=== PATIENT | male | born 1960 | race Caucasian/White ===

== ENCOUNTER 2017-11-18 06:09 | Emergency (ER) | payer MEDICAID, MEDICARE ==
[2017-11-18 07:00] LABS: BASOPHILS % (AUTO) 0.4 %; EOSINOPHILS # (AUTO) 0.1 10^3/uL (0.0-0.7); EOSINOPHILS % (AUTO) 1.6 %; HGB - HEMOGLOBIN 13.3 g/dL (14.0-18.0); LYMPHOCYTES # (AUTO) 1.6 10^3/uL (1.5-3.5); LYMPHOCYTES % (AUTO) 17.8 %; MEAN CORPUSCULAR HEMOGLOBIN 30.4 pg (27.0-31.0); MEAN CORPUSCULAR HGB CONC 34.4 g/dL (32.0-36.0); MEAN CORPUSCULAR VOLUME 88.4 fL (80.0-94.0); MEAN PLATELET VOLUME 7.7 fL (7.4-11.4); MONOCYTES # (AUTO) 1.3 10^3/uL (0.0-1.0); MONOCYTES % (AUTO) 14.9 %; NEUTROPHILS # (AUTO) 5.7 10^3/uL (1.5-6.6); NEUTROPHILS % (AUTO) 65.3 %; PLT - PLATELET COUNT 236 10^3/uL (130-450); RED BLOOD COUNT 4.38 10^6/uL (4.70-6.10); RED CELL DISTRIBUTION WIDTH 13.8 % (12.0-15.0); WHITE BLOOD COUNT 8.7 x10^3/uL (4.8-10.8)
[2017-11-18 07:14] LABS: MUDS CUTOFF CONCENTRATIONS CUTOFF CONC BELOW:
[2017-11-18 07:14] LABS: ALBUMIN 4.2 g/dL (3.2-5.5); ALBUMIN/GLOBULIN RATIO 1.4 (1.0-2.2); ALKALINE PHOSPHATASE 66 IU/L (42-121); ALT ALANINE AMINOTRANSFERASE 32 IU/L (10-60); AST ASPARTATE AMINOTRANSFERASE 63 IU/L (10-42); BILIRUBIN,TOTAL 1.5 mg/dL (0.2-1.0); BUN - BLOOD UREA NITROGEN 5 mg/dL (6-20); CALCIUM 8.7 mg/dL (8.5-10.3); CARBON DIOXIDE - CO2 26 mmol/L (21-32); CHLORIDE 97 mmol/L (101-111); CREATININE 0.7 mg/dL (0.6-1.2); GFR - MDRD 117 (>89); GLUCOSE 110 mg/dL (70-100); LIPASE 33 U/L (22-51); SODIUM 134 mmol/L (135-145); TOTAL PROTEIN 7.1 g/dL (6.7-8.2)
[2017-11-18 07:18] LABS: BILIRUBIN,URINE NEGATIVE (NEGATIVE); GLUCOSE, URINE (UA) NEGATIVE (NEGATIVE); KETONES,URINE (UA) 15 mg/dL (NEGATIVE); LEUKOCYTE ESTERASE, URINE NEGATIVE (NEGATIVE); NITRITE,URINE NEGATIVE (NEGATIVE); OCCULT BLOOD,URINE TRACE-LYSE (NEGATIVE); PH,URINE 6.5 PH (5.0-7.5); PROTEIN,URINE NEGATIVE (NEGATIVE); UROBILINOGEN,URINE 1 (NORMAL) E.U./dL (NORMAL)
[2017-11-18 07:20] LABS: CLARITY,URINE CLEAR (CLEAR)
[2017-11-18 07:34] LABS: AMPHETAMINE SCREEN,URINE NEGATIVE (NEGATIVE); BENZODIAZEPINES SCREEN, URINE NEGATIVE (NEGATIVE); COCAINE SCREEN URINE NEGATIVE (NEGATIVE); METHADONE SCREEN, URINE NEGATIVE (NEGATIVE); METHAMPHETAMINES SCREEN, URINE NEGATIVE (NEGATIVE); OPIATE SCREEN, URINE NEGATIVE (NEGATIVE); OXYCODONE SCREEN, URINE NEGATIVE (NEGATIVE); PROPOXYPHENE SCREEN, URINE NEGATIVE (NEGATIVE); TRICYCLIC ANTIDEPRESSANT,URINE NEGATIVE (NEGATIVE)
[2017-11-18] MEDS ORDERED: IBUPROFEN 800 MG TABLET PO STA (08:12)
--- NOTE | 2017-11-18 08:12 | ED Physician Documentation ---
History of Present Illness - Stated complaint Stated Complaint: BILAT KNEE PX - Chief complaint Chief Complaint: Ext Problem - History obtained from History obtained from: Patient - Additonal information Additional information: The patient is a 57-year-old male who presents with a series of complaints, including pain and swelling of his left knee, low back pain, sore throat and nasal congestion, and concern about the possibility of throat cancer. He reports that his mother had nasal polyps and developed cancer, and he is concerned that his sore throat may indicate same for him. He reports that the sore knee has been bothering him for the last 3 days. He has been walking distances of 4-6 miles daily in the past 3 days after more than 8 months of no physical activity. He denies fever, shortness of breath, nausea or vomiting. He reports chronic smoker's cough. He admits to cigarette smoking and alcohol use, as well as marijuana. He has a history of bipolar disorder, but does not take any prescription medication to treat that. Review of Systems Constitutional: denies: Fever Eyes: denies: Irritation Ears: denies: Ear pain Nose: reports: Congestion Throat: reports: Sore throat Cardiac: denies: Chest pain / pressure Respiratory: reports: Cough. denies: Dyspnea GI: denies: Abdominal Pain, Nausea, Vomiting : denies: Dysuria Skin: denies: Rash Musculoskeletal: reports: Extremity pain (left knee.) Neurologic: denies: Focal weakness, Numbness, Headache PD PAST MEDICAL HISTORY - Past Medical History Past Medical History: Yes Cardiovascular: Hypertension Respiratory: Asthma Endocrine/Autoimmune: None HEENT: Chronic sinusitis Psych: Depression, Anxiety, Bipolar disorder Musculoskeletal: Chronic back pain, Other - Past Surgical History Past Surgical History: Yes General: Other Ortho: Hip replacement, Arthroscopic surgery HEENT: Tonsil/Adenoidectomy - Present Medications Home Medications: Ambulatory Orders Medication Instructions Recorded Confirmed Ibuprofen [Motrin] 800 mg PO Q8H PRN #20 tablet 08/29/15 - Allergies Allergies/Adverse Reactions: Allergies Allergy/AdvReac Type Severity Reaction Status Date / Time doxycycline Allergy Intermediate Rash Verified 11/18/17 06:19 - Social History Does the pt smoke?: Yes Smoking Status: Current every day smoker Does the pt drink ETOH?: Yes Does the pt have substance abuse?: Yes Substance Use and Type: Marijuana - Immunizations Immunizations are current?: No Immunizations: TDAP >10years/unknown PD ED PE NORMAL - Vitals Vital signs reviewed: Yes (normal) - General General: Alert and oriented X 3, Well developed/nourished - HEENT HEENT: Atraumatic, Pharynx benign, Other (Mucousy nasal congestion.) - Neck Neck: Supple, no meningeal sign, No adenopathy - Cardiac Cardiac: RRR - Respiratory Respiratory: No respiratory distress, Clear bilaterally - Abdomen Abdomen: Soft, Non tender - Back Back: No CVA TTP - Derm Derm: No rash - Extremities Extremities: No edema, No calf tenderness / cord, Other (There is mild swelling about the left knee, without warmth or erythema palpated. There is mild soft tissue tenderness to palpation, without tenderness along the medial or lateral joint lines. He can fully extend the knee and can flex it to 90, although fle xion causes mild discomfort. There is no ligamentous laxity detected. Distal neurovascular is intact.) - Neuro Neuro: Alert and oriented X 3, No motor deficit, No sensory deficit Results - Vitals Vitals: Vital Signs - 24 hr 11/18/17 10:00 Heart Rate 88 Respiratory 16 Rate Blood Pressure 114/74 O2 Saturation 98 Oxygen O2 Source Room air - Labs Labs: Laboratory Tests 11/18/17 11/18/17 11/18/17 06:55 06:55 06:55 WBC 8.7 RBC 4.38 L Hgb 13.3 L Hct 38.7 L MCV 88.4 MCH 30.4 MCHC 34.4 RDW 13.8 Plt Count 236 MPV 7.7 Neut # (Auto) 5.7 Lymph # (Auto) 1.6 Orange # (Auto) 1.3 H Eos # (Auto) 0.1 Baso # (Auto) 0.0 Absolute Nucleated RBC 0.00 Nucleated RBC % 0.0 Sodium 134 L Potassium 3.3 L Chloride 97 L Carbon Dioxide 26 Anion Gap 11.0 BUN 5 L Creatinine 0.7 Estimated GFR (MDRD) 117 Glucose 110 H Calcium 8.7 Total Bilirubin 1.5 H AST 63 H ALT 32 Alkaline Phosphatase 66 Total Protein 7.1 Albumin 4.2 Globulin 2.9 Albumin/Globulin Ratio 1.4 Lipase 33 TSH 1.28 Urine Color Urine Clarity Urine pH Ur Specific [place] Urine Protein Urine Glucose (UA) Urine Ketones Urine Occult Blood Urine Nitrite Urine Bilirubin Urine Urobilinogen Ur Leukocyte Esterase Ur Microscopic Review Urine Culture Comments Urine Opiates Screen Ur Oxycodone Screen Urine Methadone Screen Ur Propoxyphene Screen Ur Barbiturates Screen Ur Tricyclics Screen Ur Phencyclidine Scrn Ur Amphetamine Screen U Methamphetamines Scrn U Benzodiazepines Scrn Urine Cocaine Screen U Cannabinoids Screen Ethyl Alcohol < 5.0 Group A Strep Rapid 11/18/17 11/18/17 07:13 08:00 WBC RBC Hgb Hct MCV MCH MCHC RDW Plt Count MPV Neut # (Auto) Lymph # (Auto) Orange # (Auto) Eos # (Auto) Baso # (Auto) Absolute Nucleated RBC Nucleated RBC % Sodium Potassium Chloride Carbon Dioxide Anion Gap BUN Creatinine Estimated GFR (MDRD) Glucose Calcium Total Bilirubin AST ALT Alkaline Phosphatase Total Protein Albumin Globulin Albumin/Globulin Ratio Lipase TSH Urine Color YELLOW Urine Clarity CLEAR Urine pH 6.5 Ur Specific [place] <=1.005 Urine Protein NEGATIVE Urine Glucose (UA) NEGATIVE Urine Ketones 15 H Urine Occult Blood TRACE-LYSE Urine Nitrite NEGATIVE Urine Bilirubin NEGATIVE Urine Urobilinogen 1 (NORMAL) Ur Leukocyte Esterase NEGATIVE Ur Microscopic Review NOT INDICATED Urine Culture Comments NOT INDICATED Urine Opiates Screen NEGATIVE Ur Oxycodone Screen NEGATIVE Urine Methadone Screen NEGATIVE Ur Propoxyphene Screen NEGATIVE Ur Barbiturates Screen NEGATIVE Ur Tricyclics Screen NEGATIVE Ur Phencyclidine Scrn NEGATIVE Ur Amphetamine Screen NEGATIVE U Methamphetamines Scrn NEGATIVE U Benzodiazepines Scrn NEGATIVE Urine Cocaine Screen NEGATIVE U Cannabinoids Screen POSITIVE H Ethyl Alcohol Group A Strep Rapid Negative PD MEDICAL DECISION MAKING - ED course Complexity details: reviewed results, re-evaluated patient, considered differential, d/w patient ED course: The patient's presentation is most consistent with viral upper respiratory infection. His presentation does not suggest pneumonia, and rapid strep screen is negative for strep throat. In addition, his left knee pain is most likely associated with increased walking activity, which is a new activity for him. There is no clinical evidence of an acute bony injury or infectious process. He may have a joint effusion. Treatment in the emergency department included administration of ibuprofen 800 mg orally. An Hever bandage was wrapped about the left knee. I discussed with him the diagnosis and expected course of illness, symptomatic treatment and outpatient follow-up, as well as potentially worrisome signs or symptoms that should prompt reevaluation in the emergency department. - Sepsis Event Vital Signs: Vital Signs - 24 hr 11/18/17 10:00 Heart Rate 88 Respiratory 16 Rate Blood Pressure 114/74 O2 Saturation 98 Oxygen O2 Source Room air Departure - Departure Disposition: 01 Home, Self Care Clinical Impression: Upper respiratory infection, viral Pain in extremity Qualifiers: Extremity pain location: lower extremity Laterality: left Qualified Code(s): M79.605 - Pain in left leg Condition: Stable Instructions: ED Knee Pain UKO, ED URI Viral Follow-Up: Nancy Cuello PA-C [Physician No Access] - Comments: Try to stop smoking cigarettes. You can use Tylenol or ibuprofen for fever or discomfort. Follow up with your primary physician within 2 weeks. Call to schedule an appointment. Return to the emergency department if you develop increasing pain, increasing difficulty breathing, or otherwise worsening symptoms. Discharge Date/Time: 11/18/17 10:01
[2017-11-18 10:01] VITALS: BP 114/74
== END 2017-11-18 10:01 | disposition home or self-care (01) ==
LOC: ED 06:09
DX: J06.9 Acute upper respiratory infection, unspecified (principal); M79.605 Pain in left leg; I10 Essential (primary) hypertension; F17.200 Nicotine dependence, unspecified, uncomplicated
CPT/HCPCS: 36415; 80053; 81003; 83690; 84443; 85025; 87070; 87430; 99283; A9270; 80306; 80320; 81001; 87086

== ENCOUNTER 2017-11-20 04:32 | Outpatient (CLI) | payer MEDICARE | END 2017-11-20 04:33 | disposition critical access hospital (66) | LOC: EMS 04:32 | PROVIDERS: ATTEND Surgery | DX: M25.562 Pain in left knee (principal) | CPT/HCPCS: A0425; A0429 ==

== ENCOUNTER 2017-11-20 04:48 | Emergency (ER) | payer MEDICAID, MEDICARE ==
[2017-11-20] MEDS ORDERED: ACETAMINOPHEN 500 MG TABLET PO STA (04:54)
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
[2017-11-20 05:07] VITALS: BP 147/102
--- NOTE | 2017-11-20 05:46 | XRAY Report ---
Reason: left knee pain and swelling Procedure Date: 11/20/2017 Accession Number: [id number] / [id number] Procedure: XR - Knee 2 View LT CPT Code: FULL RESULT: EXAM: LEFT KNEE RADIOGRAPHY EXAM DATE: 11/20/2017 05:18 AM. CLINICAL HISTORY: Left knee pain and swelling. COMPARISON: XR KNEE 3 VIEW 11/14/2008. TECHNIQUE: 2 views. FINDINGS: Bones: No acute fracture seen. Joints: No dislocation. Moderate 3 compartment degenerative joint disease. Small joint effusion. Soft Tissues: Mild soft tissue swelling. IMPRESSION: 1. Degenerative joint disease and small joint effusion. RADIA
== END 2017-11-20 05:45 | disposition home or self-care (01) ==
LOC: EDUNIT# → ED 04:48
DX: M19.90 Unspecified osteoarthritis, unspecified site (principal); M25.462 Effusion, left knee; I10 Essential (primary) hypertension; F17.200 Nicotine dependence, unspecified, uncomplicated
CPT/HCPCS: 99282; 99283

== ENCOUNTER 2018-05-01 05:47 | Emergency (ER) | payer MEDICARE, MEDICAID ==
[2018-05-01] MEDS ORDERED: IPRATROPIUM/ALBUTEROL 3 ML NEB INH STA (06:23)
[2018-05-01] MEDS ORDERED: LIDOCAINE 1% 2 ML VIAL SUBQ ONE (06:23)
[2018-05-01] MEDS ORDERED: DEXAMETHASONE 10 MG/ML VIAL PO STA (06:23)
[2018-05-01] MEDS ORDERED: cefTRIAXone 1 GM VIAL IM STA (06:23)
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
[2018-05-01] MEDS ORDERED: CHERRY SYRUP 10 ML UDC PO ONE (06:31)
--- NOTE | 2018-05-01 07:35 | XRAY Report ---
Reason: cough congestion Procedure Date: 05/01/2018 Accession Number: [id number] / [id number] Procedure: XR - Chest 2 View X-Ray CPT Code: 68422 FULL RESULT: EXAM: CHEST RADIOGRAPHY EXAM DATE: 05/01/2018 07:22 AM. CLINICAL HISTORY: Cough congestion. COMPARISON: CHEST 2 VIEW PA/LAT 06/02/2015 7:26 AM CHEST 2 VIEW PA/LAT 08/22/2013 7:18 AM. TECHNIQUE: 2 views. FINDINGS: Lungs/Pleura: No focal consolidation evident. There is mild pleural parenchymal thickening at the bilateral lung apices. No pleural effusion. No pneumothorax. Lungs are hyperexpanded with mild flattening of the diaphragm. Mediastinum: Heart and mediastinal contours are unremarkable. Other: There are old healed right posterior rib fractures, as seen on the prior exam. No acute displaced fracture identified. There are mild degenerative disk changes of the thoracic spine. IMPRESSION: 1. No acute cardiopulmonary abnormality. 2. Lungs are hyperexpanded with mild flattening of the diaphragm, raising the possibility of COPD/emphysema. 3. Old healed right posterior rib fractures, as seen on prior exams. No acute displaced fracture visualized. RADIA
[2018-05-01 07:39] VITALS: BP 113/59
== END 2018-05-01 07:51 | disposition home or self-care (01) ==
LOC: ED 05:47
DX: J40 Bronchitis, not specified as acute or chronic (principal); H66.003 Acute suppurative otitis media without spontaneous rupture of ear drum, bilateral; I10 Essential (primary) hypertension; F17.200 Nicotine dependence, unspecified, uncomplicated
CPT/HCPCS: 71046; 94640; 94664; 96372; 99283; A9270

== ENCOUNTER 2018-05-15 21:20 | Outpatient (CLI) | payer MEDICARE, MEDICAID | END 2018-05-15 21:21 | disposition short-term general hospital (02) | LOC: EMS 21:20 | PROVIDERS: ATTEND Surgery | DX: M54.5 Low back pain (principal); R26.2 Difficulty in walking, not elsewhere classified | CPT/HCPCS: A0425; A0429 ==

== ENCOUNTER 2018-05-22 07:32 | Outpatient (CLI) | payer MEDICARE, MEDICAID | END 2018-05-22 07:33 | disposition critical access hospital (66) | LOC: EMS 07:32 | PROVIDERS: ATTEND Surgery | DX: M25.561 Pain in right knee (principal); Y29.XXXA Contact with blunt object, undetermined intent, initial encounter; Y92.512 Supermarket, store or market as the place of occurrence of the external cause | CPT/HCPCS: A0425; A0429 ==

== ENCOUNTER 2018-05-22 07:48 | Emergency (ER) | payer MEDICARE, MEDICAID ==
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
[2018-05-22] MEDS ORDERED: IBUPROFEN 800 MG TABLET PO STA (08:09)
[2018-05-22 08:10] VITALS: BP 106/94
== END 2018-05-22 08:29 | disposition home or self-care (01) ==
LOC: EDUNIT# → ED 07:48
DX: S80.211A Abrasion, right knee, initial encounter (principal); W22.8XXA Striking against or struck by other objects, initial encounter; Y93.01 Activity, walking, marching and hiking; I10 Essential (primary) hypertension; F17.200 Nicotine dependence, unspecified, uncomplicated
CPT/HCPCS: 99282; 99283; A9270

== ENCOUNTER 2018-06-12 05:12 | Emergency (ER) | payer MEDICARE, MEDICAID ==
[2018-06-12 05:27] VITALS: BP 100/68
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
[2018-06-12] MEDS ORDERED: KETOROLAC 60 MG/2 ML VIAL IM STA (05:57)
[2018-06-12] MEDS ORDERED: DEXAMETHASONE 10 MG/ML VIAL PO STA (05:57)
[2018-06-12] MEDS ORDERED: CHERRY SYRUP 10 ML UDC PO ONE (05:57)
== END 2018-06-12 06:34 | disposition home or self-care (01) ==
LOC: ED 05:12
DX: S30.0XXA Contusion of lower back and pelvis, initial encounter (principal); S00.03XA Contusion of scalp, initial encounter; Y08.89XA Assault by other specified means, initial encounter; Y92.511 Restaurant or cafe as the place of occurrence of the external cause; I10 Essential (primary) hypertension; F17.200 Nicotine dependence, unspecified, uncomplicated; G89.29 Other chronic pain; Z96.649 Presence of unspecified artificial hip joint; Z59.0 Homelessness
CPT/HCPCS: 96372; 99282; 99283; A9270

== ENCOUNTER 2018-08-07 05:25 | Emergency (ER) | payer MEDICARE, MEDICAID ==
[2018-08-07 05:40] VITALS: BP 152/87
[2018-08-07] MEDS ORDERED: DEXAMETHASONE 10 MG/ML VIAL PO STA (05:48)
[2018-08-07] MEDS ORDERED: CHERRY SYRUP 10 ML UDC PO ONE (05:48)
--- NOTE | 2018-08-07 05:53 | ED Physician Documentation ---
PD HPI UPPER EXT INJURY - Stated complaint Stated Complaint: HAND PAIN - Chief complaint Chief Complaint: Ext Problem - History obtained from History obtained from: Patient - History of Present Illness Location: Left, Wrist Type of injury: Other (sleep injury) Where injury occurred: Home Timing - onset: How many days ago (6) Timing - duration: Days (6) Timing - details: Abrupt onset, Still present Improved by: Rest, Other (physical therapy) Worsened by: Moving, Palpating Associated symptoms: Weakness, Numbness, Tingling, Swelling, Discolored Contributing factors: No: Anticoagulated Similar symptoms before: Diagnosis (self induced TIA) Recently seen: Not recently seen - Additonal information Additional information: 57-year-old male reports that he fell asleep 1 week ago with his left wrist flexed and tucked under his neck. He states that when he awoke in the morning he found that his hand was numb and cold and that he was unable to extend the wrist or extend the fingers. He has numbness in the hand as well. He has now been able to flex and extend the wrist and he is slowly improving his ability to use each of his fingers. There is redness and swelling to the hand and a portion of the forearm. He has come here this morning at the insistence of the people he is usually around and he is requesting a referral to physical therapy as he believes this has been helping regain movement. He states that previously he has had a self-induced TIA by falling asleep with his thumb in his carotid artery on the left side. He does have bilateral Dupuytren's contracture and he wants to get this operated on. Review of Systems Constitutional: denies: Fever, Chills, Myalgias Eyes: denies: Decreased vision Ears: denies: Ear pain Nose: denies: Rhinorrhea / runny nose, Congestion Throat: denies: Sore throat Cardiac: denies: Chest pain / pressure, Palpitations Respiratory: denies: Dyspnea, Cough GI: denies: Abdominal Pain, Nausea, Vomiting : denies: Dysuria, Frequency Skin: denies: Rash Musculoskeletal: reports: Extremity pain, Joint pain, Extremity swelling. denies: Neck pain, Back pain Neurologic: reports: Focal weakness, Numbness. denies: Generalized weakness PD PAST MEDICAL HISTORY - Past Medical History Cardiovascular: Hypertension Respiratory: Asthma Neuro: None Endocrine/Autoimmune: None GI: None : None HEENT: Chronic sinusitis Psych: Depression, Anxiety, Bipolar disorder Musculoskeletal: Chronic back pain, Other Derm: None Other Past Medical History: pneumothorax R lung, plantar fibroma bilateral feet - Past Surgical History Past Surgical History: Yes General: Other Ortho: Hip replacement, Arthroscopic surgery HEENT: Tonsil/Adenoidectomy - Present Medications Home Medications: Ambulatory Orders Medication Instructions Recorded Confirmed No Known Home Medications 08/07/18 08/07/18 - Allergies Allergies/Adverse Reactions: Allergies Allergy/AdvReac Type Severity Reaction Status Date / Time doxycycline Allergy Intermediate Rash Verified 08/07/18 05:31 - Social History Does the pt smoke?: Yes Smoking Status: Current every day smoker Does the pt drink ETOH?: Yes ETOH Use: Wine Does the pt have substance abuse?: No Substance Use and Type: Marijuana - Immunizations Immunizations are current?: No Immunizations: TDAP current <10years - POLST Patient has POLST: No PD ED PE NORMAL - Vitals Vital signs reviewed: Yes (tachy and hypertensive) - General General: Alert and oriented X 3, No acute distress, Well developed/nourished - HEENT HEENT: Atraumatic, PERRL, EOMI - Respiratory Respiratory: No respiratory distress - Derm Derm: Warm and dry, No rash, Other (redness to the left hand and a portion of the forearm ) - Extremities Extremities: Other (The left hand is held in flexion with the fingers flexed as well. He is able to dorsiflex the wrist and he can partially straighten the fingers. The 5th digit is the most affected. ) - Neuro Neuro: Alert and oriented X 3, saas architect 2-12 intact, Normal speech Eye Opening: Spontaneous Motor: Obeys Commands Verbal: Oriented GCS Score: 15 - Psych Psych: Normal mood, Normal affect Results - Vitals Vitals: Vital Signs - 24 hr 08/07/18 05:28 Temperature 36.9 C Heart Rate 124 H Respiratory 16 Rate Blood Pressure 152/87 H O2 Saturation 97 Oxygen O2 Source Room air Procedures - Splint (location) left wrist Splint applied by: Tech Type of splint: Prefab velcro wrist Other: Patient tolerated well, No complications, Good alignment PD MEDICAL DECISION MAKING - ED course Complexity details: considered differential, d/w patient ED course: 57 y/o male with a Tuesday palsy causing a wrist drop and functional loss of use of the left hand. Here in the ED he is administered decadron, placed into a splint and we will refer him to physical therapy. Departure - Departure Disposition: Home, Self Care Clinical Impression: Tuesday night nerve palsy Qualifiers: Laterality: left Qualified Code(s): G56.32 - Lesion of radial nerve, left upper limb Condition: Stable Instructions: ED Drop Wrist Follow-Up: Ailyn Peña ARNP [Primary Care Provider] - SHANNON GREEN [Physician No Access] - Comments: This problem with your wrist can take as long as 3 to 6 months to resolve.
== END 2018-08-07 06:28 | disposition home or self-care (01) ==
LOC: ED 05:25
DX: G56.32 Lesion of radial nerve, left upper limb (principal); M72.0 Palmar fascial fibromatosis [Dupuytren]; I10 Essential (primary) hypertension; F17.200 Nicotine dependence, unspecified, uncomplicated
CPT/HCPCS: 29125; 99283; A9270; 11760

== ENCOUNTER 2018-10-20 00:53 | Outpatient (CLI) | payer MEDICARE, MEDICAID | END 2018-10-20 00:54 | disposition EMS.NT | LOC: EMS 00:53 | PROVIDERS: ATTEND Surgery | DX: R68.89 Other general symptoms and signs (principal) ==

== ENCOUNTER 2018-10-25 06:19 | Outpatient (CLI) | payer MEDICARE, MEDICAID | END 2018-10-25 06:20 | disposition short-term general hospital (02) | LOC: EMS 06:19 | PROVIDERS: ATTEND Surgery | DX: M25.552 Pain in left hip (principal); W01.0XXA Fall on same level from slipping, tripping and stumbling without subsequent striking against object, initial encounter | CPT/HCPCS: A0425; A0429 ==

== ENCOUNTER 2018-12-26 00:07 | Outpatient (CLI) | payer MEDICARE, MEDICAID | END 2018-12-26 00:08 | disposition critical access hospital (66) | LOC: EMS 00:07 | PROVIDERS: ATTEND Surgery | DX: M25.552 Pain in left hip (principal) | CPT/HCPCS: A0425; A0429 ==

== ENCOUNTER 2018-12-26 00:22 | Inpatient (IN) | payer MEDICARE, MEDICAID ==
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
--- NOTE | 2018-12-26 04:55 | CT Report ---
Reason: fall, left hip pain Procedure Date: 12/26/2018 Accession Number: [id number] / [id number] Procedure: CT - LOWER EXTREMITY WO - LT CPT Code: FULL RESULT: EXAM: LEFT LOWER EXTREMITY CT WITHOUT CONTRAST EXAM DATE: 12/26/2018 03:55 AM. CLINICAL HISTORY: Fall, left hip pain. COMPARISON: HIP W/PELVIS 2-3V LT 12/26/2018 1:59 AM. TECHNIQUE: Thin-section axial images were acquired of the lower extremity from above the iliac crest to the mid femur without contrast. Post-processing: Coronal and sagittal reformats. Other: None. In accordance with CT protocol optimization, one or more of the following dose reduction techniques were utilized for this exam: automated exposure control, adjustment of mA and/or KV based on patient size, or use of iterative reconstructive technique. FINDINGS: Bones: Subcapital left hip fracture. Fracture lines also extend to the greater trochanter and intertrochanteric area. Lytic appearing area in the femoral neck measuring 1.6 cm, series 11 image 98. Healing fractures of the right pubis and inferior pubic ramus. Joints: No dislocation seen. Moderate degenerative joint disease in the left hip. Degenerative changes in the lower lumbar facet joints with spinal stenosis. Degenerative changes in the sacroiliac joints with partial ankylosis on the left. Degenerative changes in the symphysis pubis. Musculature: Suspected contusion at the left hip. Other: Urinary bladder wall thickening. Large amount of stool in the visualized portions of the colon. Appendix appears normal. Vascular calcifications. IMPRESSION: 1. Subcapital left hip fracture extending into the greater trochanter and intertrochanteric area. 2. Subchondral cyst versus lytic lesion in the left femoral neck measuring 1.6 cm. Cannot exclude pathologic fracture. 3. Healing fractures of the right pubis and inferior pubic ramus. 4. Moderate degenerative joint disease in the left hip. 5. Degenerative changes in the lower lumbar facet joints with spinal stenosis. 6. Urinary bladder wall thickening which could be due to hypertrophy and incomplete distention. Cystitis also possible. RADIA
[2018-12-26] MEDS ORDERED: SODIUM CHLORIDE 0.9% 1,000 ML IV STA ×2 (05:00→05:52)
[2018-12-26] MEDS ORDERED: MORPHINE 2 MG/ML CARPUJECT IVP PRN (05:22)
[2018-12-26] MEDS ORDERED: SODIUM CHLORIDE FLUSH 0.9% 10 ML SYRINGE IVP PRN ×2 (05:22→10:44)
[2018-12-26] MEDS ORDERED: ONDANSETRON ODT 4 MG TABLET TL PRN (05:22)
[2018-12-26] MEDS ORDERED: ONDANSETRON 4 MG/2 ML VIAL IVP PRN (05:22)
[2018-12-26 05:29] LABS: BASOPHILS % (AUTO) 0.3 %; EOSINOPHILS # (AUTO) 0.2 10^3/uL (0.0-0.7); EOSINOPHILS % (AUTO) 2.2 %; HGB - HEMOGLOBIN 12.2 g/dL (14.0-18.0); LYMPHOCYTES % (AUTO) 21.7 %; MEAN CORPUSCULAR HEMOGLOBIN 31.8 pg (27.0-31.0); MEAN CORPUSCULAR HGB CONC 33.1 g/dL (32.0-36.0); MEAN CORPUSCULAR VOLUME 96.1 fL (80.0-94.0); MEAN PLATELET VOLUME 8.9 fL (7.4-11.4); MONOCYTES # (AUTO) 1.1 10^3/uL (0.0-1.0); MONOCYTES % (AUTO) 11.3 %; NEUTROPHILS # (AUTO) 5.9 10^3/uL (1.5-6.6); NEUTROPHILS % (AUTO) 64.1 %; PLT - PLATELET COUNT 194 10^3/uL (130-450); RED BLOOD COUNT 3.84 10^6/uL (4.70-6.10); WHITE BLOOD COUNT 9.3 x10^3/uL (4.8-10.8)
--- NOTE | 2018-12-26 05:33 | XRAY Report ---
Reason: chest pain Procedure Date: 12/26/2018 Accession Number: [id number] / [id number] Procedure: XR - Chest 1 View X-Ray CPT Code: 84651 FULL RESULT: EXAM: CHEST RADIOGRAPHY EXAM DATE: 12/26/2018 05:13 AM. CLINICAL HISTORY: Chest pain. COMPARISON: CHEST 2 VIEW 05/01/2018 7:10 AM. TECHNIQUE: 1 view. FINDINGS: Lungs/Pleura: The lungs are hyperinflated. There are no infiltrates or signs of failure. Mediastinum: Within exam limitations, the cardiomediastinal contour is normal. Other: None. IMPRESSION: 1. No acute infiltrates. RADIA
[2018-12-26 05:36] LABS: INR 1.3 (0.8-1.2); PT - PROTHROMBIN TIME 14.2 secs (9.9-12.6)
[2018-12-26 05:42] LABS: ALBUMIN 3.2 g/dL (3.2-5.5); ALBUMIN/GLOBULIN RATIO 1.1 (1.0-2.2); BILIRUBIN,TOTAL 0.8 mg/dL (0.2-1.0); CALCIUM 8.3 mg/dL (8.5-10.3); CREATININE 0.4 mg/dL (0.6-1.2)
[2018-12-26 05:43] LABS: PARTIAL THROMBOPLASTIN TIME 29.6 secs (24.9-33.3)
[2018-12-26] MEDS ORDERED: SODIUM CHLORIDE 0.9% 1,000 ML IV SCH (06:00)
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
[2018-12-26] MEDS ORDERED: FLU VACC QS2019-20(6MOS UP)/PF 60 MCG/0.5 ML SYRINGE IM ONE (06:54)
[2018-12-26] MEDS ORDERED: HALOPERIDOL 5 MG/ML VIAL IVP PRN (07:20)
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
[2018-12-26] MEDS ORDERED: PNEUMOCOCCAL 13-VALENT CONJ 0.5 ML SYRINGE IM ONE (08:00)
[2018-12-26] MEDS: POTASSIUM CHLOR 10 MEQ/100 ML 10 MEQ/100 ML BAG IV SCH ×4 (08:00→13:34)
[2018-12-26] MEDS ORDERED: BUPIVACAINE 0.25% PF 30 ML VIAL ONE (08:01)
--- NOTE | 2018-12-26 08:48 | ANESTHESIA PROCEDURE NOTE ---
Diagnosis: Left hip fracture Procedure: Left fascia iliaca block Consent for Procedure(s) Verified and Reviewed: Yes Height and Weight: Height 5 ft 11 in Weight (kg) 64.5 kg Body Mass Index 19.8 Vital Signs: Temp Pulse Resp BP Pulse Ox 36.9 C 98 16 90/69 97 12/26/18 06:40 12/26/18 06:40 12/26/18 06:40 12/26/18 06:40 12/26/18 06:40 Allergies doxycycline Allergy (Intermediate, Verified 12/26/18 00:31) Rash unknown due to pt condition ASA classification: 2-Mild systemic disease Is this case an emergency?: No Anes. Monitoring and Equipment: Non-invasive BP, Pulse oximetery Anes. Procedure Start Time: 08:20 Anes. Procedure Stop Time: 08:30 Procedure Notes: The patient's left hip was prepped with chloroprep. Ultrasound was used to identify the fascia iliaca. A 22G stimiplex needle was inserted just under the fascial plane and a total of 60ml of 0.25% ropivicaine plus 4mg decadron was injected with adequate spread noted. Patient tolerated well. Full evaluation pending.
[2018-12-26] MEDS ORDERED: SODIUM CHLORIDE FLUSH 0.9% 10 ML SYRINGE IVP SCH (09:00)
[2018-12-26] MEDS ORDERED: ceFAZolin 2 GM in SODIUM CHLORIDE 0.9% 100ML 100 ML IV SCH (09:00)
[2018-12-26] MEDS ORDERED: LACTATED RINGERS 1,000 ML IV ONE ×2 (09:07→10:37)
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
[2018-12-26] MEDS ORDERED: FLUMAZENIL 0.1 MG/1 ML 5 ML MDV IVP ONE (09:50)
[2018-12-26] MEDS ORDERED: BUPIVACAINE 0.25% PF 30 ML VIAL SUBQ ONE ×2 (09:55)
[2018-12-26] MEDS ORDERED: SENNA 8.6 MG TABLET PO PRN (10:44)
[2018-12-26] MEDS ORDERED: DOCUSATE SODIUM 100 MG CAPSULE PO PRN (10:44)
[2018-12-26] MEDS ORDERED: PROCHLORPERAZINE 10 MG/2 ML VIAL IVP PRN (10:44)
--- NOTE | 2018-12-26 11:30 | OPERATIVE REPORT ---
DATE OF SERVICE: 12/26/2018 Physician: Syed Bentley MD ORTHOPEDIC OPERATIVE NOTE PREOPERATIVE DIAGNOSIS: Closed, minimally displaced, left subcapital and intertrochanteric hip fract ure. POSTOPERATIVE DIAGNOSIS: Closed, minimally displaced, left subcapital and intertrochanteric hip frac ture. PROCEDURE PERFORMED: Closed reduction and short Intertan nailing of left hip fracture; bone reaming to pathology of cystic lesion in the left femoral neck. SURGEON: Syed Bentley MD. ANESTHESIA: General. DESCRIPTION OF PROCEDURE: Patient was taken to the operating room on the morning of 12/26/2018, wher e he was placed under general anesthetic in supine position on the fracture table without any problem s. We then placed the unfractured left leg with the hip flexed and widely abducted and held in a wel l leg dominique. The fractured left extremity was then placed into longitudinal traction with the leg i nternally rotated about 20 degrees. Fluoroscopic views in AP and lateral projection showed the fract ure to be adequately reduced. We then prepped and draped the lateral aspect of the hip in the usual fashion for our procedure. Making an oblique skin incision just proximal of the tip of the greater trochanter, we dissected down to the fascia salvatore at the tip of the greater trochanter. This is where we placed the threaded guide wire from the set. Its location was confirmed with fluoroscopy. We then advanced with powering the threaded guide pin through the greater trochanter into the proximal femur to the level of the lesser trochanter. AP and lateral projections were then visualized, showing adequate placement of our guide pin. We then proceeded to ream the proximal femur with a 16 mm channel reamer on power. This was r eamed down to the level of the lesser trochanter. We then removed the guide pin and reamer. We then used our selected short Intertan nail, which was 10 mm x 18 cm, 125 degree angle. This was placed o n the insertion outrigger, and this was advanced into the prepared proximal femur. Fluoroscopic view in AP projection showed adequate advancement of our nail down to where the oblique proximal hole in our nail was in alignment with the femoral neck. We then proceeded to make a small skin incision in the proximal mid portion of the thigh, where we in serted our oblique guide in the distal end of our insertion apparatus, abutting this against the late ral femoral cortex. We then inserted our drill sleeves into our guide and proceeded to advance under power the threaded tip through the proximal femur and femoral neck and into the femoral head. AP an d lateral projection showed a satisfactory position of our guide pin in proper depth. Direct measuri ng guide was then used to determine that a 100 mm length x 11 mm subtrochanteric hip lag screw be uti lized. We then removed our drill sleeve out of our alignment guide. Our cannulated reamer was then used to drill the proximal femur, femoral neck and femoral head. C-arm fluoroscopy was used to guide us. We then removed the cannulated reamer and inserted the selected subtrochanteric hip lag screw i n our prepared channel. This was advanced to within 3-4 mm of subchondral bone, AP and lateral proje ction. Satisfied with the reduction of our fracture and placement of our hardware proximally, we the n directed our attention to the mid thigh. Through a small skin incision at the mid lateral thigh, we advanced our concentric silver and gold dr ill sleeves through our incision down to the lateral femoral shaft cortex. We then proceeded to dril l bicortically with our drill sleeve. Direct measurement off our drill indicated a 40 mm length dist al locking screw be utilized. We then removed the drill and the silver inner sleeve. This was then followed by our selected distal locking screw, which measured 5 mm x 40 mm. Fluoroscopic view in AP and lateral projection showed satisfactory placement of our distal locking screw. We then removed ou r insertion apparatus. We proceeded to get AP and lateral projections of both the distal end of the nail and the proximal end of the nail, showing a good reduction of our hip fracture. We then proceed ed to irrigate the wounds out thoroughly with saline. The wound was then closed using 2-0 Vicryl to approximate the fascia salvatore incision; 3-0 Vicryl to paul se the subcutaneous tissue and the proximal 2 incisions. Skin berlin were used to approximate the s kin edge in all the wounds. We injected a total of 20 mL of 0.25% Marcaine, used for local anesthesi a in all the 3 incision sites. Wounds were dressed. Patient transferred off the table onto his bed and taken to recovery room in satisfactory condition. ESTIMATED BLOOD LOSS: 200 mL REPLACEMENT: 800 mL crystalloid. INTRAOPERATIVE COMPLICATIONS: None. PLAN: Patient may be weightbearing as tolerated. PATHOLOGY: Some intraosseous bone reaming from the femoral neck and head which occurred during the r eaming process was collected and sent to pathology for analysis. TD: 12/26/2018 10:48
[2018-12-26] MEDS: MORPHINE 2 MG/ML CARPUJECT IVP PRN ×2 (11:43→16:35)
[2018-12-26] MEDS: MULTIVITAMIN 10 ML, THIAMINE INJ 100 MG, FOLIC ACID INJ 1 MG in SODIUM CHLORIDE 0.9% 1,... IV SCH (11:46)
[2018-12-26] MEDS: NICOTINE 7 MG PATCH TOP SCH (11:49)
[2018-12-26] MEDS: oxyCODONE 5 MG TABLET PO PRN ×2 (12:02→20:14)
[2018-12-26] MEDS: POLYETHYLENE GLYCOL 3350 17 GM PACKET PO SCH (12:06)
[2018-12-26 13:37] LABS: MUDS CUTOFF CONCENTRATIONS CUTOFF CONC BELOW:
[2018-12-26 13:52] LABS: AMPHETAMINE SCREEN,URINE NEGATIVE (NEGATIVE); BENZODIAZEPINES SCREEN, URINE NEGATIVE (NEGATIVE); COCAINE SCREEN URINE NEGATIVE (NEGATIVE); METHADONE SCREEN, URINE NEGATIVE (NEGATIVE); METHAMPHETAMINES SCREEN, URINE NEGATIVE (NEGATIVE); OPIATE SCREEN, URINE POSITIVE (NEGATIVE); TRICYCLIC ANTIDEPRESSANT,URINE NEGATIVE (NEGATIVE)
[2018-12-26 13:53] LABS: OXYCODONE SCREEN, URINE POSITIVE (NEGATIVE); PROPOXYPHENE SCREEN, URINE NEGATIVE (NEGATIVE)
--- NOTE | 2018-12-26 14:00 | XRAY Report ---
Reason: LEFT HIP PINNING Procedure Date: 12/26/2018 Accession Number: [id number] / [id number] Procedure: XR - Hip w/Pelvis 2-3V LT CPT Code: FULL RESULT: EXAM: FLUOROSCOPIC GUIDANCE EXAM DATE: 12/26/2018 10:34 AM. CLINICAL HISTORY: LEFT HIP PINNING. COMPARISON: HIP W/PELVIS 2-3V LT 12/26/2018 1:59 AM LOWER EXTREMITY LEFT W/O 12/26/2018 3:45 AM. FINDINGS: Intraoperative fluoroscopic spot images show internal fixation of the previously seen left femoral neck fracture with a dynamic screw and short intramedullary yoni. Please see operative report for details. IMPRESSION: Fluoroscopic guidance provided for Dr. Jaspal Alegre. Total fluoroscopy time: 0.8 minutes. Number of images: 3. RADIA
[2018-12-26] MEDS: SODIUM CHLORIDE 0.9% 1,000 ML IV SCH (14:25)
--- NOTE | 2018-12-26 15:14 | XRAY Report ---
Reason: IMPLANT PLACEMENT Procedure Date: 12/26/2018 Accession Number: [id number] / [id number] Procedure: [place] - OR C-Arm Procedure CPT Code: FULL RESULT: EXAM: FLUOROSCOPIC GUIDANCE EXAM DATE: 12/26/2018 10:34 AM. CLINICAL HISTORY: LEFT HIP PINNING. COMPARISON: HIP W/PELVIS 2-3V LT 12/26/2018 1:59 AM LOWER EXTREMITY LEFT W/O 12/26/2018 3:45 AM. FINDINGS: Intraoperative fluoroscopic spot images show internal fixation of the previously seen left femoral neck fracture with a dynamic screw and short intramedullary yoni. Please see operative report for details. IMPRESSION: Fluoroscopic guidance provided for Dr. Jaspal Alegre. Total fluoroscopy time: 0.8 minutes. Number of images: 3. RADIA
--- NOTE | 2018-12-26 16:06 | PROVIDER PROGRESS NOTE ---
Subjective - Prog Note Date Prog Note Date: 12/26/18 - Subjective Pt reports feeling: Improved Subjective: pt is s/p of left hip repair. he report he ate his dinner, his pain is controlled now. pt has no other complaints. Current Medications - Current Medications Current Medications: Active Medications Acetaminophen (Tylenol) 650 - 975 mg PO Q4HR PRN PRN Reason: PAIN Albuterol () 2.5 mg INH RTQ4H PRN PRN Reason: Wheezing Aspirin (Ca) 325 mg PO BIDWM [facility] Last Admin: 12/26/18 16:30 Dose: 325 mg Docusate Sodium (Colace 100mg Capsule) 100 mg PO BID PRN PRN Reason: Constipation Haloperidol (Haldol Inj) 1 mg IVP Q6H PRN PRN Reason: Agitation Multivitamins 10 ml/ Thiamine HCl 100 mg/ Folic Acid 1 mg/Sodium Chloride 1,011.2 mls @ 100 mls/hr IV DAILY [facility] Last Admin: 12/26/18 11:46 Dose: 100 mls/hr Cefazolin Sodium 2 gm/ Sodium (Chloride) 100 mls @ 200 mls/hr IV ONCE [facility] Stop: 12/26/18 23:00 Last Admin: 12/26/18 11:48 Dose: Not Given Cefazolin Sodium 2 gm/ Sodium (Chloride) 100 mls @ 200 mls/hr IV Q8H [facility] Stop: 12/27/18 01:29 Last Admin: 12/26/18 17:01 Dose: 200 mls/hr Sodium Chloride (Normal Saline 0.9%) 1,000 mls @ 100 mls/hr IV .Q10H [facility] Last Admin: 12/26/18 14:25 Dose: Not Given Lactobacillus Rhamnosus (Culturelle) 1 cap PO DAILY [facility] Last Admin: 12/26/18 16:30 Dose: 1 cap Morphine Sulfate (Morphine (Carpuject)) 2 mg IVP Q2HR PRN PRN Reason: PAIN Last Admin: 12/26/18 16:35 Dose: 2 mg Nicotine (Nicoderm) 1 patch TOP DAILY [facility] Last Admin: 12/26/18 11:49 Dose: 1 patch Ondansetron HCl (Zofran Inj) 4 mg IVP Q6HR PRN PRN Reason: Nausea / Vomiting Ondansetron HCl (Zofran Odt) 4 mg TL Q6HR PRN PRN Reason: Nausea / Vomiting Oxycodone HCl (Roxicodone) 5 mg PO Q4HR PRN PRN Reason: PAIN Last Admin: 12/26/18 12:02 Dose: 5 mg Polyethylene Glycol (Miralax) 17 gm PO DAILY [facility] Last Admin: 12/26/18 12:06 Dose: Not Given Prochlorperazine Edisylate (Compazine Inj) 10 mg IVP Q6HR PRN PRN Reason: Nausea / Vomiting Senna (Senokot) 17.2 mg PO Q12H PRN PRN Reason: Constipation Sodium Chloride (Normal Saline Flush 0.9%) 10 ml IVP 0100,0900,1700 [facility] Last Admin: 12/26/18 16:33 Dose: 10 ml Sodium Chloride (Normal Saline Flush 0.9%) 10 ml IVP PRN PRN PRN Reason: NEEDED PER PROVIDER ORDERS No Known Home Medications 08/07/18 Objective - Vital Signs/Intake & Output Reviewed Vital Signs: Yes Vital Signs: Vital Signs x48h Temp Pulse Pulse Resp BP BP Pulse Ox 12/26/18 15:29 37.0 C 96 20 163/73 H 96 12/26/18 14:26 36.4 C L 90 18 93/62 100 12/26/18 13:27 36.1 C L 93 18 112/72 100 12/26/18 12:30 36.3 C L 85 16 107/81 H 99 12/26/18 12:00 36.2 C L 94 16 102/76 94 12/26/18 11:31 90 18 101/56 L 94 12/26/18 11:23 36.4 C L 85 16 115/74 96 12/26/18 11:10 36.2 C L 88 15 120/85 H 97 12/26/18 11:05 85 21 114/81 H 97 12/26/18 11:00 36.0 C L 88 20 111/88 H 98 12/26/18 10:55 88 19 109/80 100 12/26/18 10:50 36.5 C 86 18 108/81 H 100 12/26/18 10:45 93 18 102/80 100 12/26/18 10:40 36.6 C 97 23 107/78 100 Intake & Output: Intake & Output 12/23/18 12/24/18 12/25/18 12/26/18 23:59 23:59 23:59 23:59 Intake Total 4481 Output Total 1600 Balance 2881 - Objective General Appearance: positive: No acute distress, Alert. negative: Lethargic Eyes Bilateral: positive: Normal inspection, PERRL, No lid inflammation, Conjunctivae nml ENT: positive: ENT inspection nml, Pharynx nml, No signs of dehydration. negative: Purulent nasal drainage Neck: positive: Nml inspection, Thyroid nml, No JVD, Trachea midline. negative: Thyromegaly, Lymphadenopathy (R), Lymphadenopathy (L), Stiff neck, Swelling/bru ising, Tracheal deviation Respiratory: positive: Chest non-tender, No respiratory distress, Breath sounds nml. negative: Wheezes, Rales, Rhonchi Cardiovascular: positive: No murmur, No gallop. negative: Irregularly irregular, Extrasystoles, Tachycardia, Bradycardia, JVD present, Systolic murmur, Diastolic murmur Peripheral Pulses: 2+ Radial (R), 2+ Radial (L), 2+ Dorsalis pedis (R), 2+ Dorsalis pedis (L) Abdomen: positive: Non-tender, No organomegaly, Nml bowel sounds, No distention. negative: Tenderness, Guarding, Rebound Back: positive: Nml inspection. negative: CVA tenderness (R), CVA tenderness (L) Skin: positive: Color nml, No rash, Warm, Dry. negative: Cyanosis, Diaphoresis, Pallor Extremities: negative: Calf tenderness, Tali's sign/cords Neurologic/Psychiatric: positive: Oriented x3, Sensation nml. negative: Weakness, Sensory loss, Facial droop, Slurred/abnml speech, Depressed mood/affect - Lab Results Fish Bones: 12/26/18 05:20 12/26/18 05:20 Other Labs: Lab Results x24hrs 12/26/18 12/26/18 12/26/18 Range/Units 13:20 05:20 05:20 WBC (4.8-10.8) x10^3/uL RBC (4.70-6.10) 10^6/uL Hgb (14.0-18.0) g/dL Hct (42.0-52.0) % MCV (80.0-94.0) fL MCH (27.0-31.0) pg MCHC (32.0-36.0) g/dL RDW (12.0-15.0) % Plt Count (130-450) 10^3/uL MPV (7.4-11.4) fL Neut # (Auto) (1.5-6.6) 10^3/uL Lymph # (Auto) (1.5-3.5) 10^3/uL Perry # (Auto) (0.0-1.0) 10^3/uL Eos # (Auto) (0.0-0.7) 10^3/uL Baso # (Auto) (0.0-0.1) 10^3/uL Absolute Nucleated RBC x10^3/uL Nucleated RBC % /100WBC PT (9.9-12.6) secs INR (0.8-1.2) APTT (24.9-33.3) secs Sodium 139 (135-145) mmol/L Potassium 3.3 L (3.5-5.0) mmol/L Chloride 102 (101-111) mmol/L Carbon Dioxide 29 (21-32) mmol/L Anion Gap 8.0 (6-13) BUN 10 (6-20) mg/dL Creatinine 0.4 L (0.6-1.2) mg/dL Estimated GFR (MDRD) 222 (>89) Glucose 107 H (70-100) mg/dL Calcium 8.3 L (8.5-10.3) mg/dL Total Bilirubin 0.8 (0.2-1.0) mg/dL AST 19 (10-42) IU/L ALT 17 (10-60) IU/L Alkaline Phosphatase 68 (42-121) IU/L Troponin I High Sens 4.1 (2.3-19.7) pg/mL Total Protein 6.0 L (6.7-8.2) g/dL Albumin 3.2 (3.2-5.5) g/dL Globulin 2.8 (2.1-4.2) g/dL Albumin/Globulin Ratio 1.1 (1.0-2.2) Lipase 37 (22-51) U/L Urine Opiates Screen POSITIVE H (NEGATIVE) Ur Oxycodone Screen POSITIVE H (NEGATIVE) Urine Methadone Screen NEGATIVE (NEGATIVE) Ur Propoxyphene Screen NEGATIVE (NEGATIVE) Ur Barbiturates Screen NEGATIVE (NEGATIVE) Ur Tricyclics Screen NEGATIVE (NEGATIVE) Ur Phencyclidine Scrn NEGATIVE (NEGATIVE) Ur Amphetamine Screen NEGATIVE (NEGATIVE) U Methamphetamines Scrn NEGATIVE (NEGATIVE) U Benzodiazepines Scrn NEGATIVE (NEGATIVE) Urine Cocaine Screen NEGATIVE (NEGATIVE) U Cannabinoids Screen POSITIVE H (NEGATIVE) 12/26/18 12/26/18 Range/Units 05:20 05:20 WBC 9.3 (4.8-10.8) x10^3/uL RBC 3.84 L (4.70-6.10) 10^6/uL Hgb 12.2 L (14.0-18.0) g/dL Hct 36.9 L (42.0-52.0) % MCV 96.1 H (80.0-94.0) fL MCH 31.8 H (27.0-31.0) pg MCHC 33.1 (32.0-36.0) g/dL RDW 14.0 (12.0-15.0) % Plt Count 194 (130-450) 10^3/uL MPV 8.9 (7.4-11.4) fL Neut # (Auto) 5.9 (1.5-6.6) 10^3/uL Lymph # (Auto) 2.0 (1.5-3.5) 10^3/uL Perry # (Auto) 1.1 H (0.0-1.0) 10^3/uL Eos # (Auto) 0.2 (0.0-0.7) 10^3/uL Baso # (Auto) 0.0 (0.0-0.1) 10^3/uL Absolute Nucleated RBC 0.00 x10^3/uL Nucleated RBC % 0.0 /100WBC PT 14.2 H (9.9-12.6) secs INR 1.3 H (0.8-1.2) APTT 29.6 (24.9-33.3) secs Sodium (135-145) mmol/L Potassium (3.5-5.0) mmol/L Chloride (101-111) mmol/L Carbon Dioxide (21-32) mmol/L Anion Gap (6-13) BUN (6-20) mg/dL Creatinine (0.6-1.2) mg/dL Estimated GFR (MDRD) (>89) Glucose (70-100) mg/dL Calcium (8.5-10.3) mg/dL Total Bilirubin (0.2-1.0) mg/dL AST (10-42) IU/L ALT (10-60) IU/L Alkaline Phosphatase (42-121) IU/L Troponin I High Sens (2.3-19.7) pg/mL Total Protein (6.7-8.2) g/dL Albumin (3.2-5.5) g/dL Globulin (2.1-4.2) g/dL Albumin/Globulin Ratio (1.0-2.2) Lipase (22-51) U/L Urine Opiates Screen (NEGATIVE) Ur Oxycodone Screen (NEGATIVE) Urine Methadone Screen (NEGATIVE) Ur Propoxyphene Screen (NEGATIVE) Ur Barbiturates Screen (NEGATIVE) Ur Tricyclics Screen (NEGATIVE) Ur Phencyclidine Scrn (NEGATIVE) Ur Amphetamine Screen (NEGATIVE) U Methamphetamines Scrn (NEGATIVE) U Benzodiazepines Scrn (NEGATIVE) Urine Cocaine Screen (NEGATIVE) U Cannabinoids Screen (NEGATIVE) ABX Reporting Has patient been on IV antibiotics over the past 48 hours?: Yes Assessment/Plan - Problem List (1) Femur fracture, left Impression: s/p left hip repair, followup orthopedics pt report his pain is controlled, continue pain control PT/OT Aspirin for DVT prophylaxis per orthopedics (2) Lesion of left femur Conclusion/Plan: did discuss with orthopedics for possible biopsy, orthopedics will do as he can in the procedure (3) Preop cardiovascular exam Conclusion/Plan: it seems pt is hemodynamically stable now. continue s/p care, closely monitor pt (4) Bipolar affective disorder, mixed, severe, with psychotic behavior Conclusion/Plan: stable now, has Haldol PRN (5) Hypokalemia Conclusion/Plan: replace IV since he is NPO (6) Hypotension Conclusion/Plan: resolved (7) current smoker advise pt quit smoker, Nicotine patch (8)alcohol abuse continue banana bag it seems pt has no alcohol withdrawal now, will add CIWA as clinically needed Qualifiers: Encounter type: initial encounter Femur location: other head and neck Fracture type: closed Qualified Code(s): S72.013R - Other fracture of head and neck of left femur, initial encounter for closed fracture
[2018-12-26] MEDS: LACTOBACILLUS RHAMNOSUS GG CAPSULE PO SCH (16:30)
[2018-12-26] MEDS: ASPIRIN 325 MG TABLET PO SCH (16:30)
[2018-12-26] MEDS: SODIUM CHLORIDE FLUSH 0.9% 10 ML SYRINGE IVP SCH (16:33)
[2018-12-26] MEDS ORDERED: ALBUTEROL NEB 2.5 MG/3 ML INH PRN (16:57)
[2018-12-26] MEDS: ceFAZolin 2 GM in SODIUM CHLORIDE 0.9% 100ML 100 ML IV SCH (17:01)
[2018-12-26] MEDS: ACETAMINOPHEN 325 MG TABLET PO PRN (20:15)
[2018-12-27] MEDS: ACETAMINOPHEN 325 MG TABLET PO PRN ×2 (00:31→06:56)
[2018-12-27] MEDS: oxyCODONE 5 MG TABLET PO PRN ×2 (00:31→08:57)
[2018-12-27] MEDS: ceFAZolin 2 GM in SODIUM CHLORIDE 0.9% 100ML 100 ML IV SCH (00:49)
[2018-12-27] MEDS: SODIUM CHLORIDE 0.9% 1,000 ML IV SCH ×3 (00:52→20:05)
[2018-12-27] MEDS: SODIUM CHLORIDE FLUSH 0.9% 10 ML SYRINGE IVP SCH ×3 (00:52→16:52)
[2018-12-27] MEDS ORDERED: SODIUM CHLORIDE 0.9% 500 ML IV ONE (07:36)
[2018-12-27 07:49] LABS: BASOPHILS % (AUTO) 0.2 %; EOSINOPHILS % (AUTO) 0.3 %; HGB - HEMOGLOBIN 10.4 g/dL (14.0-18.0); LYMPHOCYTES # (AUTO) 1.9 10^3/uL (1.5-3.5); LYMPHOCYTES % (AUTO) 19.8 %; MEAN CORPUSCULAR HEMOGLOBIN 31.8 pg (27.0-31.0); MEAN CORPUSCULAR HGB CONC 32.2 g/dL (32.0-36.0); MEAN CORPUSCULAR VOLUME 98.8 fL (80.0-94.0); MEAN PLATELET VOLUME 8.7 fL (7.4-11.4); NEUTROPHILS # (AUTO) 6.8 10^3/uL (1.5-6.6); NEUTROPHILS % (AUTO) 69.3 %; PLT - PLATELET COUNT 181 10^3/uL (130-450); RED BLOOD COUNT 3.27 10^6/uL (4.70-6.10); RED CELL DISTRIBUTION WIDTH 13.9 % (12.0-15.0); WHITE BLOOD COUNT 9.8 x10^3/uL (4.8-10.8)
[2018-12-27 07:58] LABS: CALCIUM 7.8 mg/dL (8.5-10.3); CREATININE 0.5 mg/dL (0.6-1.2); MAGNESIUM 1.9 mg/dL (1.7-2.8)
[2018-12-27] MEDS: NICOTINE 7 MG PATCH TOP SCH ×2 (08:36→21:58)
[2018-12-27] MEDS: ASPIRIN 325 MG TABLET PO SCH ×2 (08:37→16:51)
[2018-12-27] MEDS: LACTOBACILLUS RHAMNOSUS GG CAPSULE PO SCH (08:37)
[2018-12-27] MEDS: POLYETHYLENE GLYCOL 3350 17 GM PACKET PO SCH (08:38)
[2018-12-27] MEDS: MULTIVITAMIN 10 ML, THIAMINE INJ 100 MG, FOLIC ACID INJ 1 MG in SODIUM CHLORIDE 0.9% 1,... IV SCH (08:58)
[2018-12-27 09:43] LABS: HGB - HEMOGLOBIN 10.3 g/dL (14.0-18.0)
[2018-12-27] MEDS: MORPHINE 2 MG/ML CARPUJECT IVP PRN (10:17)
[2018-12-27] MEDS ORDERED: MIDAZOLAM 2 MG/2 ML VIAL IVP ONE (12:05)
[2018-12-27] MEDS ORDERED: NEOSTIGMINE 1 MG/1 ML 10 ML MDV IVP ONE (12:05)
[2018-12-27] MEDS ORDERED: fentaNYL 100 MCG/2 ML VIAL IVP ONE (12:05)
[2018-12-27] MEDS ORDERED: PROPOFOL 200 MG/20 ML VIAL IVP ONE (12:05)
[2018-12-27] MEDS ORDERED: DEXAMETHASONE 4 MG/ML VIAL IVP ONE ×2 (12:05)
[2018-12-27] MEDS ORDERED: ROCURONIUM 50 MG/5 ML VIAL IVP ONE (12:05)
--- NOTE | 2018-12-27 12:17 | PROVIDER PROGRESS NOTE ---
Subjective - Prog Note Date Prog Note Date: 12/27/18 - Subjective Pt reports feeling: Improved Subjective: pt report he feel good controlled his pain. he is already bearing weight with PT/OT. he denies other complaints. Current Medications - Current Medications Current Medications: Active Medications Acetaminophen (Tylenol) 650 - 975 mg PO Q4HR PRN PRN Reason: PAIN Last Admin: 12/27/18 06:56 Dose: 650 mg Hydrocodone Bitart/Acetaminophen (Seltzer 5/325) 1 tab PO Q4HR PRN PRN Reason: PAIN Albuterol () 2.5 mg INH RTQ4H PRN PRN Reason: Wheezing Aspirin (Ca) 325 mg PO BIDWM [facility] Last Admin: 12/27/18 08:37 Dose: 325 mg Docusate Sodium (Colace 100mg Capsule) 100 mg PO BID PRN PRN Reason: Constipation Haloperidol (Haldol Inj) 1 mg IVP Q6H PRN PRN Reason: Agitation Multivitamins 10 ml/ Thiamine HCl 100 mg/ Folic Acid 1 mg/Sodium Chloride 1,01 1.2 mls @ 100 mls/hr IV DAILY [facility] Last Admin: 12/27/18 08:58 Dose: 100 mls/hr Sodium Chloride (Normal Saline 0.9%) 1,000 mls @ 100 mls/hr IV .Q10H [facility] Last Admin: 12/27/18 12:51 Dose: Not Given Lactobacillus Rhamnosus (Culturelle) 1 cap PO DAILY [facility] Last Admin: 12/27/18 08:37 Dose: 1 cap Morphine Sulfate (Morphine (Carpuject)) 2 mg IVP Q2HR PRN PRN Reason: PAIN Last Admin: 12/27/18 10:17 Dose: 2 mg Nicotine (Nicoderm) 1 patch TOP DAILY [facility] Last Admin: 12/27/18 08:36 Dose: 1 patch Ondansetron HCl (Zofran Inj) 4 mg IVP Q6HR PRN PRN Reason: Nausea / Vomiting Ondansetron HCl (Zofran Odt) 4 mg TL Q6HR PRN PRN Reason: Nausea / Vomiting Oxycodone HCl (Roxicodone) 5 mg PO Q4HR PRN PRN Reason: PAIN Last Admin: 12/27/18 08:57 Dose: 5 mg Polyethylene Glycol (Miralax) 17 gm PO DAILY [facility] Last Admin: 12/27/18 08:38 Dose: Not Given Prochlorperazine Edisylate (Compazine Inj) 10 mg IVP Q6HR PRN PRN Reason: Nausea / Vomiting Senna (Senokot) 17.2 mg PO Q12H PRN PRN Reason: Constipation Sodium Chloride (Normal Saline Flush 0.9%) 10 ml IVP 0100,0900,1700 [facility] Last Admin: 12/27/18 12:51 Dose: Not Given Sodium Chloride (Normal Saline Flush 0.9%) 10 ml IVP PRN PRN PRN Reason: NEEDED PER PROVIDER ORDERS No Known Home Medications 08/07/18 Objective - Vital Signs/Intake & Output Reviewed Vital Signs: Yes Vital Signs: Vital Signs x48h Temp Pulse Pulse Resp BP BP Pulse Ox 12/27/18 12:08 36.9 C 89 16 118/79 98 12/27/18 08:53 89 138/71 H 12/27/18 08:00 92 16 12/27/18 07:40 37.1 C 102 H 16 101/69 96 12/27/18 07:00 109 H 81/64 L 12/27/18 06:50 91/66 12/27/18 05:33 37.0 C 87 18 83/63 L 97 Intake & Output: Intake & Output 12/24/18 12/25/18 12/26/18 12/27/18 23:59 23:59 23:59 23:59 Intake Total 6313 3611.2 Output Total 3625 1875 Balance 2688 1736.2 - Objective General Appearance: positive: No acute distress. negative: Alert, Lethargic Eyes Bilateral: positive: Normal inspection, PERRL, No lid inflammation, Conjunctivae nml ENT: positive: ENT inspection nml, Pharynx nml, No signs of dehydration. negative: Purulent nasal drainage Neck: positive: Nml inspection, Thyroid nml, No JVD, Trachea midline. negative: Thyromegaly, Lymphadenopathy (R), Lymphadenopathy (L), Stiff neck, Tracheal deviation Respiratory: positive: Chest non-tender, No respiratory distress, Breath sounds nml. negative: Wheezes, Rales, Rhonchi Cardiovascular: positive: Regular rate & rhythm, No murmur, No gallop. negative: Irregularly irregular, Extrasystoles, Tachycardia, Bradycardia, JVD present, Systolic murmur, Diastolic murmur Peripheral Pulses: 2+ Radial (R), 2+ Radial (L), 2+ Dorsalis pedis (R), 2+ Dorsalis pedis (L) Abdomen: positive: Non-tender, No organomegaly, Nml bowel sounds, No distention. negative: Tenderness, Guarding, Rebound Back: positive: Nml inspection. negative: CVA tenderness (R), CVA tenderness (L) Skin: positive: Color nml, No rash, Warm, Dry. negative: Cyanosis, Diaphoresis, Pallor Extremities: negative: Calf tenderness, Tali's sign/cords Neurologic/Psychiatric: positive: Oriented x3, Sensation nml. negative: Weakness, Sensory loss, Facial droop, Slurred/abnml speech, Depressed mood/affect - Lab Results Fish Bones: 12/27/18 09:15 12/27/18 07:45 Other Labs: Lab Results x24hrs 12/27/18 12/27/18 12/27/18 Range/Units 09:15 07:45 07:45 WBC 9.8 (4.8-10.8) x10^3/uL RBC 3.27 L (4.70-6.10) 10^6/uL Hgb 10.3 L 10.4 L (14.0-18.0) g/dL Hct 32.4 L 32.3 L (42.0-52.0) % MCV 98.8 H (80.0-94.0) fL MCH 31.8 H (27.0-31.0) pg MCHC 32.2 (32.0-36.0) g/dL RDW 13.9 (12.0-15.0) % Plt Count 181 (130-450) 10^3/uL MPV 8.7 (7.4-11.4) fL Neut # (Auto) 6.8 H (1.5-6.6) 10^3/uL Lymph # (Auto) 1.9 (1.5-3.5) 10^3/uL [place] # (Auto) 1.0 (0.0-1.0) 10^3/uL Eos # (Auto) 0.0 (0.0-0.7) 10^3/uL Baso # (Auto) 0.0 (0.0-0.1) 10^3/uL Absolute Nucleated RBC 0.00 x10^3/uL Nucleated RBC % 0.0 /100WBC Sodium 140 (135-145) mmol/L Potassium 3.7 (3.5-5.0) mmol/L Chloride 106 (101-111) mmol/L Carbon Dioxide 28 (21-32) mmol/L Anion Gap 6.0 (6-13) BUN 7 (6-20) mg/dL Creatinine 0.5 L (0.6-1.2) mg/dL Estimated GFR (MDRD) 171 (>89) Glucose 135 H (70-100) mg/dL Calcium 7.8 L (8.5-10.3) mg/dL Magnesium 1.9 (1.7-2.8) mg/dL Urine Opiates Screen (NEGATIVE) Ur Oxycodone Screen (NEGATIVE) Urine Methadone Screen (NEGATIVE) Ur Propoxyphene Screen (NEGATIVE) Ur Barbiturates Screen (NEGATIVE) Ur Tricyclics Screen (NEGATIVE) Ur Phencyclidine Scrn (NEGATIVE) Ur Amphetamine Screen (NEGATIVE) U Methamphetamines Scrn (NEGATIVE) U Benzodiazepines Scrn (NEGATIVE) Urine Cocaine Screen (NEGATIVE) U Cannabinoids Screen (NEGATIVE) 12/26/18 Range/Units 13:20 WBC (4.8-10.8) x10^3/uL RBC (4.70-6.10) 10^6/uL Hgb (14.0-18.0) g/dL Hct (42.0-52.0) % MCV (80.0-94.0) fL MCH (27.0-31.0) pg MCHC (32.0-36.0) g/dL RDW (12.0-15.0) % Plt Count (130-450) 10^3/uL MPV (7.4-11.4) fL Neut # (Auto) (1.5-6.6) 10^3/uL Lymph # (Auto) (1.5-3.5) 10^3/uL [place] # (Auto) (0.0-1.0) 10^3/uL Eos # (Auto) (0.0-0.7) 10^3/uL Baso # (Auto) (0.0-0.1) 10^3/uL Absolute Nucleated RBC x10^3/uL Nucleated RBC % /100WBC Sodium (135-145) mmol/L Potassium (3.5-5.0) mmol/L Chloride (101-111) mmol/L Carbon Dioxide (21-32) mmol/L Anion Gap (6-13) BUN (6-20) mg/dL Creatinine (0.6-1.2) mg/dL Estimated GFR (MDRD) (>89) Glucose (70-100) mg/dL Calcium (8.5-10.3) mg/dL Magnesium (1.7-2.8) mg/dL Urine Opiates Screen POSITIVE H (NEGATIVE) Ur Oxycodone Screen POSITIVE H (NEGATIVE) Urine Methadone Screen NEGATIVE (NEGATIVE) Ur Propoxyphene Screen NEGATIVE (NEGATIVE) Ur Barbiturates Screen NEGATIVE (NEGATIVE) Ur Tricyclics Screen NEGATIVE (NEGATIVE) Ur Phencyclidine Scrn NEGATIVE (NEGATIVE) Ur Amphetamine Screen NEGATIVE (NEGATIVE) U Methamphetamines Scrn NEGATIVE (NEGATIVE) U Benzodiazepines Scrn NEGATIVE (NEGATIVE) Urine Cocaine Screen NEGATIVE (NEGATIVE) U Cannabinoids Screen POSITIVE H (NEGATIVE) ABX Reporting Has patient been on IV antibiotics over the past 48 hours?: No Assessment/Plan - Problem List (1) Femur fracture, left Impression: 12/27, PT report pt can walk with bearing weight. pt report his pain is good controlled now continue PT/OT continue pain control followup orthopedics Aspirin for DVT prophylaxis per orthopedics s/p left hip repair, followup orthopedics pt report his pain is controlled, continue pain control PT/OT Aspirin for DVT prophylaxis per orthopedics (2) Lesion of left femur Conclusion/Plan: did discuss with orthopedics for possible biopsy, orthopedics will do as he can in the procedure (3) Preop cardiovascular exam Conclusion/Plan: it seems pt is hemodynamically stable now. continue s/p care, closely monitor pt (4) Bipolar affective disorder, mixed, severe, with psychotic behavior Conclusion/Plan: stable now, has Haldol PRN (5) Hypokalemia Conclusion/Plan: replace IV since he is NPO (6) Hypotension Conclusion/Plan: 12/27, pt still present low SBP at this morning, but pt is asymptomatic. pt was given 500ml bolus of IV NS. pt's BP quickly returned to normal arrange. pt did not present dehydration. unknown etiology why his BP is always lower significantly in the morning. check cortisol in AM may consider order of 2.5 mg Midodrive if pt continue to have hypotension resolved (7) current smoker advise pt quit smoker, Nicotine patch (8)alcohol abuse continue banana bag it seems pt has no alcohol withdrawal now, will add CIWA as clinically needed Qualifiers: Encounter type: initial encounter Femur location: other head and neck Fracture type: closed Qualified Code(s): S72.092A - Other fracture of head and neck of left femur, initial encounter for closed fracture
--- NOTE | 2018-12-27 12:43 | PROVIDER PROGRESS NOTE ---
Subjective - Prog Note Date Prog Note Date: 12/27/18 Prog Note Time: 12:41 - Subjective Pt reports feeling: Improved (Mild post op pain. Up in chair. WBAT on leg) Objective - Vital Signs/Intake & Output Vital Signs: Vital Signs x48h Temp Pulse Pulse Resp BP BP Pulse Ox 12/27/18 12:08 36.9 C 89 16 118/79 98 12/27/18 08:53 89 138/71 H 12/27/18 08:00 92 16 12/27/18 07:40 37.1 C 102 H 16 101/69 96 12/27/18 07:00 109 H 81/64 L 12/27/18 06:50 91/66 12/27/18 05:33 37.0 C 87 18 83/63 L 97 Intake & Output: Intake & Output 12/24/18 12/25/18 12/26/18 12/27/18 23:59 23:59 23:59 23:59 Intake Total 6313 3971.2 Output Total 3625 1875 Balance 2688 2096.2 - Lab Results Fish Bones: 12/27/18 09:15 12/27/18 07:45 Other Labs: Lab Results x24hrs 12/27/18 12/27/18 12/27/18 Range/Units 09:15 07:45 07:45 WBC 9.8 (4.8-10.8) x10^3/uL RBC 3.27 L (4.70-6.10) 10^6/uL Hgb 10.3 L 10.4 L (14.0-18.0) g/dL Hct 32.4 L 32.3 L (42.0-52.0) % MCV 98.8 H (80.0-94.0) fL MCH 31.8 H (27.0-31.0) pg MCHC 32.2 (32.0-36.0) g/dL RDW 13.9 (12.0-15.0) % Plt Count 181 (130-450) 10^3/uL MPV 8.7 (7.4-11.4) fL Neut # (Auto) 6.8 H (1.5-6.6) 10^3/uL Lymph # (Auto) 1.9 (1.5-3.5) 10^3/uL [place] # (Auto) 1.0 (0.0-1.0) 10^3/uL Eos # (Auto) 0.0 (0.0-0.7) 10^3/uL Baso # (Auto) 0.0 (0.0-0.1) 10^3/uL Absolute Nucleated RBC 0.00 x10^3/uL Nucleated RBC % 0.0 /100WBC Sodium 140 (135-145) mmol/L Potassium 3.7 (3.5-5.0) mmol/L Chloride 106 (101-111) mmol/L Carbon Dioxide 28 (21-32) mmol/L Anion Gap 6.0 (6-13) BUN 7 (6-20) mg/dL Creatinine 0.5 L (0.6-1.2) mg/dL Estimated GFR (MDRD) 171 (>89) Glucose 135 H (70-100) mg/dL Calcium 7.8 L (8.5-10.3) mg/dL Magnesium 1.9 (1.7-2.8) mg/dL Urine Opiates Screen (NEGATIVE) Ur Oxycodone Screen (NEGATIVE) Urine Methadone Screen (NEGATIVE) Ur Propoxyphene Screen (NEGATIVE) Ur Barbiturates Screen (NEGATIVE) Ur Tricyclics Screen (NEGATIVE) Ur Phencyclidine Scrn (NEGATIVE) Ur Amphetamine Screen (NEGATIVE) U Methamphetamines Scrn (NEGATIVE) U Benzodiazepines Scrn (NEGATIVE) Urine Cocaine Screen (NEGATIVE) U Cannabinoids Screen (NEGATIVE) 12/26/18 Range/Units 13:20 WBC (4.8-10.8) x10^3/uL RBC (4.70-6.10) 10^6/uL Hgb (14.0-18.0) g/dL Hct (42.0-52.0) % MCV (80.0-94.0) fL MCH (27.0-31.0) pg MCHC (32.0-36.0) g/dL RDW (12.0-15.0) % Plt Count (130-450) 10^3/uL MPV (7.4-11.4) fL Neut # (Auto) (1.5-6.6) 10^3/uL Lymph # (Auto) (1.5-3.5) 10^3/uL [place] # (Auto) (0.0-1.0) 10^3/uL Eos # (Auto) (0.0-0.7) 10^3/uL Baso # (Auto) (0.0-0.1) 10^3/uL Absolute Nucleated RBC x10^3/uL Nucleated RBC % /100WBC Sodium (135-145) mmol/L Potassium (3.5-5.0) mmol/L Chloride (101-111) mmol/L Carbon Dioxide (21-32) mmol/L Anion Gap (6-13) BUN (6-20) mg/dL Creatinine (0.6-1.2) mg/dL Estimated GFR (MDRD) (>89) Glucose (70-100) mg/dL Calcium (8.5-10.3) mg/dL Magnesium (1.7-2.8) mg/dL Urine Opiates Screen POSITIVE H (NEGATIVE) Ur Oxycodone Screen POSITIVE H (NEGATIVE) Urine Methadone Screen NEGATIVE (NEGATIVE) Ur Propoxyphene Screen NEGATIVE (NEGATIVE) Ur Barbiturates Screen NEGATIVE (NEGATIVE) Ur Tricyclics Screen NEGATIVE (NEGATIVE) Ur Phencyclidine Scrn NEGATIVE (NEGATIVE) Ur Amphetamine Screen NEGATIVE (NEGATIVE) U Methamphetamines Scrn NEGATIVE (NEGATIVE) U Benzodiazepines Scrn NEGATIVE (NEGATIVE) Urine Cocaine Screen NEGATIVE (NEGATIVE) U Cannabinoids Screen POSITIVE H (NEGATIVE) - Other Results/Comments Other Results/Comments: EXAM: Dressing intact. Moves hip with mild pain. Moves toes well. Sensation intact. Good cap filling Assessment/Plan - Problem List (1) Hip fracture, left Impression: Satis post op PLAN: Mobilize as tolerated. Appears sensitive to oxycodone. Will try vicodin for analgesia. Qualifiers: Encounter type: initial encounter Fracture type: closed Qualified Code(s): S72.002A - Fracture of unspecified part of neck of left femur, initial encounter for closed fracture
[2018-12-27] MEDS: HYDROcod/ACETAM 5/325 MG TABLET PO PRN ×2 (14:12→20:04)
[2018-12-28] MEDS: HYDROcod/ACETAM 5/325 MG TABLET PO PRN ×2 (00:03→05:06)
[2018-12-28] MEDS: SODIUM CHLORIDE FLUSH 0.9% 10 ML SYRINGE IVP SCH ×2 (01:03→08:19)
[2018-12-28 05:03] LABS: BASOPHILS # (AUTO) 0.1 10^3/uL (0.0-0.1); EOSINOPHILS # (AUTO) 0.3 10^3/uL (0.0-0.7); EOSINOPHILS % (AUTO) 4.5 %; HGB - HEMOGLOBIN 10.9 g/dL (14.0-18.0); LYMPHOCYTES # (AUTO) 1.4 10^3/uL (1.5-3.5); LYMPHOCYTES % (AUTO) 22.3 %; MEAN CORPUSCULAR HEMOGLOBIN 30.8 pg (27.0-31.0); MEAN CORPUSCULAR HGB CONC 31.1 g/dL (32.0-36.0); MEAN CORPUSCULAR VOLUME 99.2 fL (80.0-94.0); MEAN PLATELET VOLUME 9.2 fL (7.4-11.4); MONOCYTES # (AUTO) 0.6 10^3/uL (0.0-1.0); MONOCYTES % (AUTO) 9.5 %; NEUTROPHILS # (AUTO) 3.9 10^3/uL (1.5-6.6); NEUTROPHILS % (AUTO) 62.4 %; PLT - PLATELET COUNT 202 10^3/uL (130-450); RED BLOOD COUNT 3.54 10^6/uL (4.70-6.10); RED CELL DISTRIBUTION WIDTH 14.1 % (12.0-15.0); WHITE BLOOD COUNT 6.2 x10^3/uL (4.8-10.8)
[2018-12-28 05:09] LABS: CALCIUM 8.2 mg/dL (8.5-10.3); CREATININE 0.4 mg/dL (0.6-1.2)
[2018-12-28] MEDS: SODIUM CHLORIDE 0.9% 1,000 ML IV SCH (06:03)
[2018-12-28 07:32] VITALS: BP 139/63
[2018-12-28] MEDS: oxyCODONE 5 MG TABLET PO PRN ×2 (08:18→12:24)
[2018-12-28] MEDS: ASPIRIN 325 MG TABLET PO SCH (08:18)
[2018-12-28] MEDS: LACTOBACILLUS RHAMNOSUS GG CAPSULE PO SCH (08:18)
[2018-12-28] MEDS: POLYETHYLENE GLYCOL 3350 17 GM PACKET PO SCH (08:18)
[2018-12-28] MEDS: NICOTINE 7 MG PATCH TOP SCH (08:19)
[2018-12-28] MEDS ORDERED: SENNA 8.6 MG TABLET PO SCH (09:00)
[2018-12-28 09:11] LABS: HGB - HEMOGLOBIN 10.9 g/dL (14.0-18.0)
[2018-12-28] MEDS: MULTIVITAMIN 10 ML, THIAMINE INJ 100 MG, FOLIC ACID INJ 1 MG in SODIUM CHLORIDE 0.9% 1,... IV SCH (10:48)
--- NOTE | 2018-12-28 11:59 | Discharge Plan ---
Discharge Plan Problem Reviewed?: Yes Disposition: Home, Self Care Condition: Stable Prescriptions: HYDROcod/ACETAM 5/325 [[place] 5/325] 1 tab PO Q4HR PRN #30 tablet PRN Reason: Pain Aspirin [Ca] 325 mg PO BIDWM #24 tablet Thiamine [Vitamin B-1] 100 mg PO DAILY #15 tablet Diet: Regular Activity Restrictions: Activity as Tolerated Shower Restrictions: No (fall precaution) Instruction Topics: Surgery Prevent DVT After, Aspirin ASA chewable tablets, Acetaminophen Hydrocodone tablets or capsules, Thiamine Vitamin B1 tablets Health Concerns: s/p care for hip repair Plan of Treatment: you bear weight to walk with PT on the nurse station and medical floor. you are doing well. You please followup orthopedics office in 2 weeks to have xray, and to be checked out by orthopedics, might have your biopsy result of your bone lesion when you see your orthopedics. Care Goals: stabilization and improvement of your medical conditions Assessment: assessment as the above Additional Instructions or Follow Up instructions: You may followup your PCP in one week and followup orthopedics office in two weeks. Should your symptoms return or worsen, you may present ER or call 911 for help. No Smoking: If you smoke, Please STOP! Call for help. Follow-up with: Ailyn Peña ARNP [Primary Care Provider] -
--- NOTE | 2018-12-28 12:18 | PROVIDER PROGRESS NOTE ---
Subjective - Prog Note Date Prog Note Date: 12/28/18 Prog Note Time: 12:16 - Subjective Pt reports feeling: Improved (No new complaints) Objective - Vital Signs/Intake & Output Vital Signs: Vital Signs x48h Temp Pulse Resp BP Pulse Ox 12/28/18 07:26 36.8 C 85 17 139/63 H 96 Intake & Output: Intake & Output 12/25/18 12/26/18 12/27/18 12/28/18 23:59 23:59 23:59 23:59 Intake Total 6313 6358.4 2091.667 Output Total 3625 6250 3750 Balance 2688 108.4 -1658.333 - Lab Results Fish Bones: 12/28/18 09:03 12/28/18 04:50 Other Labs: Lab Results x24hrs 12/28/18 12/28/18 12/28/18 Range/Units 09:03 04:50 04:50 WBC (4.8-10.8) x10^3/uL RBC (4.70-6.10) 10^6/uL Hgb 10.9 L (14.0-18.0) g/dL Hct 34.1 L (42.0-52.0) % MCV (80.0-94.0) fL MCH (27.0-31.0) pg MCHC (32.0-36.0) g/dL RDW (12.0-15.0) % Plt Count (130-450) 10^3/uL MPV (7.4-11.4) fL Neut # (Auto) (1.5-6.6) 10^3/uL Lymph # (Auto) (1.5-3.5) 10^3/uL [place] # (Auto) (0.0-1.0) 10^3/uL Eos # (Auto) (0.0-0.7) 10^3/uL Baso # (Auto) (0.0-0.1) 10^3/uL Absolute Nucleated RBC x10^3/uL Nucleated RBC % /100WBC Sodium (135-145) mmol/L Potassium (3.5-5.0) mmol/L Chloride (101-111) mmol/L Carbon Dioxide (21-32) mmol/L Anion Gap (6-13) BUN (6-20) mg/dL Creatinine (0.6-1.2) mg/dL Estimated GFR (MDRD) (>89) Glucose (70-100) mg/dL Calcium (8.5-10.3) mg/dL TSH 3.66 (0.34-5.60) uIU/mL Cortisol AM Sample 6.1 ug/dL 12/28/18 12/28/18 Range/Units 04:50 04:50 WBC 6.2 (4.8-10.8) x10^3/uL RBC 3.54 L (4.70-6.10) 10^6/uL Hgb 10.9 L (14.0-18.0) g/dL Hct 35.1 L (42.0-52.0) % MCV 99.2 H (80.0-94.0) fL MCH 30.8 (27.0-31.0) pg MCHC 31.1 L (32.0-36.0) g/dL RDW 14.1 (12.0-15.0) % Plt Count 202 (130-450) 10^3/uL MPV 9.2 (7.4-11.4) fL Neut # (Auto) 3.9 (1.5-6.6) 10^3/uL Lymph # (Auto) 1.4 L (1.5-3.5) 10^3/uL [place] # (Auto) 0.6 (0.0-1.0) 10^3/uL Eos # (Auto) 0.3 (0.0-0.7) 10^3/uL Baso # (Auto) 0.1 (0.0-0.1) 10^3/uL Absolute Nucleated RBC 0.00 x10^3/uL Nucleated RBC % 0.0 /100WBC Sodium 142 (135-145) mmol/L Potassium 4.3 (3.5-5.0) mmol/L Chloride 104 (101-111) mmol/L Carbon Dioxide 30 (21-32) mmol/L Anion Gap 8.0 (6-13) BUN 10 (6-20) mg/dL Creatinine 0.4 L (0.6-1.2) mg/dL Estimated GFR (MDRD) 222 (>89) Glucose 107 H (70-100) mg/dL Calcium 8.2 L (8.5-10.3) mg/dL TSH (0.34-5.60) uIU/mL Cortisol AM Sample ug/dL - Other Results/Comments Other Results/Comments: EXAM: Minimal pain with hip motion. Ambulating in room. N/V ok distally Assessment/Plan - Problem List (1) Hip fracture, left Impression: Satis post op PLAN: Continue walker ambulate - WBAT on left. RTC in 2 weeks for [place] out and new XR. Qualifiers: Encounter type: initial encounter Fracture type: closed Qualified Code(s): S72.002A - Fracture of unspecified part of neck of left femur, initial encounter for closed fracture
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
== END 2018-12-28 15:35 | disposition home or self-care (01) | DRG 481 ==
LOC: EDUNIT# → ED 00:22 → MS2 05:22
PROVIDERS: ADMIT Specialist; ATTEND Nurse Practitioner Gerontology
PROC: 0QS736Z Reposition Left Upper Femur with Intramedullary Internal Fixation Device, Percutaneous Approach (ICD-10-PCS; principal; 2018-12-26 08:00)
DX: S72.012A Unspecified intracapsular fracture of left femur, initial encounter for closed fracture (principal); F31.64 Bipolar disorder, current episode mixed, severe, with psychotic features; V18.0XXA Pedal cycle driver injured in noncollision transport accident in nontraffic accident, initial encounter; S72.142A Displaced intertrochanteric fracture of left femur, initial encounter for closed fracture; Y93.55 Activity, bike riding; F17.200 Nicotine dependence, unspecified, uncomplicated; F31.9 Bipolar disorder, unspecified; E87.6 Hypokalemia; G89.29 Other chronic pain; M54.9 Dorsalgia, unspecified; I10 Essential (primary) hypertension; M89.9 Disorder of bone, unspecified; I95.9 Hypotension, unspecified; F10.10 Alcohol abuse, uncomplicated; F17.210 Nicotine dependence, cigarettes, uncomplicated; J45.909 Unspecified asthma, uncomplicated; J32.9 Chronic sinusitis, unspecified; F41.9 Anxiety disorder, unspecified; Z91.19 Patient's noncompliance with other medical treatment and regimen; Z59.0 Homelessness; Z72.89 Other problems related to lifestyle
CPT/HCPCS: 36415; 71045; 73502; 73700; 80048; 80053; 82533; 83690; 83735; 84443; 84484; 85014; 85018; 85025; 85610; 85730; 90670; 90686; 93005; 93306; 97116; 97161; 97165; 97535; 99284; 99285; A9270; J3411; J7120; 80306

== ENCOUNTER 2022-06-07 23:54 | Outpatient (CLI) | payer MEDICARE, MEDICAID | END 2022-06-07 23:59 | disposition EMS.NT | LOC: EMS 23:54 | DX: Z03.89 Encounter for observation for other suspected diseases and conditions ruled out (principal) ==

== ENCOUNTER 2022-08-01 18:18 | Outpatient (CLI) | payer MEDICARE, MEDICAID | END 2022-08-01 18:19 | disposition EMS.NT | LOC: EMS 18:18 | DX: S61.217A Laceration without foreign body of left little finger without damage to nail, initial encounter (principal); Y04.2XXA Assault by strike against or bumped into by another person, initial encounter; Y92.512 Supermarket, store or market as the place of occurrence of the external cause ==

== ENCOUNTER 2022-11-02 07:01 | Outpatient (CLI) | payer MEDICARE, MEDICAID | END 2022-11-02 23:59 | disposition critical access hospital (66) | LOC: EMS 07:01 | DX: R52 Pain, unspecified (principal) | CPT/HCPCS: A0425; A0429 ==

== ENCOUNTER 2022-11-02 07:09 | Emergency (ER) | payer MEDICARE, MEDICAID ==
[2022-11-02 07:27] VITALS: BP 141/85; O2SAT 100
[2022-11-02] MEDS ORDERED: LIDOCAINE PATCH 5% TOP STA (07:53)
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
--- NOTE | 2022-11-02 08:40 | XRAY Report ---
PROCEDURE: Knee 3 View LT INDICATIONS: fall TECHNIQUE: 3 views of the left knee(s) were acquired. COMPARISON: None. FINDINGS: Bones: No fractures or dislocations. Tricompartment joint space loss and moderate spur formation. N o suspicious bony lesions. Soft tissues: No knee joint effusion. No suspicious soft tissue calcifications or masses. IMPRESSION: No acute bony abnormality. If there remains a high clinical concern for fracture, including inability to bear weight, consider cross-sectional imaging to exclude an occult fracture. Tricompartment osteoarthritic change. Reviewed by: Meera Mcdonald MD on 11/02/2022 8:39 AM PDT Approved by: Meera Mcdonald MD on 11/02/2022 8:39 AM PDT Station ID: [id number]
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
== END 2022-11-02 08:59 | disposition home or self-care (01) ==
LOC: EDUNIT# → ED 07:09
DX: M25.552 Pain in left hip (principal); M25.562 Pain in left knee; I10 Essential (primary) hypertension; F17.200 Nicotine dependence, unspecified, uncomplicated
CPT/HCPCS: 71045; 73502; 73562; 99283; 99284; A9270

== ENCOUNTER 2022-11-04 20:25 | Outpatient (CLI) | payer MEDICARE, MEDICAID | END 2022-11-04 20:26 | disposition EMS.NT | LOC: EMS 20:25 | DX: S80.212A Abrasion, left knee, initial encounter (principal); W01.0XXA Fall on same level from slipping, tripping and stumbling without subsequent striking against object, initial encounter; Y92.414 Local residential or business street as the place of occurrence of the external cause ==

== ENCOUNTER 2023-01-16 08:00 | Outpatient (CLI) | payer MEDICARE, MEDICAID ==
[2023-01-16 17:47] LABS: BASOPHILS # (AUTO) 0.1 10^3/uL (0.0-0.1); EOSINOPHILS # (AUTO) 0.2 10^3/uL (0.0-0.7); EOSINOPHILS % (AUTO) 3.9 %; HCT - HEMATOCRIT 48.2 % (42.0-52.0); LYMPHOCYTES # (AUTO) 1.8 10^3/uL (1.5-3.5); LYMPHOCYTES % (AUTO) 29.8 %; MEAN CORPUSCULAR HEMOGLOBIN 30.1 pg (27.0-31.0); MEAN CORPUSCULAR HGB CONC 31.1 g/dL (32.0-36.0); MEAN CORPUSCULAR VOLUME 96.6 fL (80.0-94.0); MEAN PLATELET VOLUME 9.2 fL (7.4-11.4); MONOCYTES # (AUTO) 0.5 10^3/uL (0.0-1.0); MONOCYTES % (AUTO) 9.2 %; NEUTROPHILS # (AUTO) 3.3 10^3/uL (1.5-6.6); NEUTROPHILS % (AUTO) 55.8 %; PLT - PLATELET COUNT 305 10^3/uL (130-450); RED BLOOD COUNT 4.99 10^6/uL (4.70-6.10); RED CELL DISTRIBUTION WIDTH 13.2 % (12.0-15.0); WHITE BLOOD COUNT 5.9 x10^3/uL (4.8-10.8)
[2023-01-16 18:06] LABS: ALBUMIN/GLOBULIN RATIO 1.8 (1.0-2.2); BILIRUBIN,TOTAL 0.3 mg/dL (0.2-1.0); CALCIUM 9.3 mg/dL (8.5-10.3); CREATININE 0.6 mg/dL (0.6-1.3); POTASSIUM 5.1 mmol/L (3.5-4.5); TOTAL PROTEIN 6.2 g/dL (6.4-8.9)
== END 2023-01-16 23:59 | disposition home or self-care (01) ==
LOC: LAB.R 08:00
PROVIDERS: ATTEND Registered Nurse
DX: R79.89 Other specified abnormal findings of blood chemistry (principal); R68.89 Other general symptoms and signs; R97.20 Elevated prostate specific antigen [PSA]
CPT/HCPCS: 80053; 84153; 85025

== ENCOUNTER 2023-01-18 13:36 | Outpatient (CLI) | payer OTHER, MEDICARE, MEDICAID | END 2023-01-18 13:37 | disposition home or self-care (01) | LOC: LAB.R 13:36 | PROVIDERS: ATTEND Registered Nurse | DX: E87.5 Hyperkalemia (principal) | CPT/HCPCS: 84132 ==

== ENCOUNTER 2023-04-05 11:07 | Emergency (ER) | payer MEDICARE, MEDICAID ==
--- NOTE | 2023-04-05 11:44 | XRAY Report ---
PROCEDURE: Chest 2V INDICATIONS: cough TECHNIQUE: 2 views of the chest were acquired. COMPARISON: 11/02/2022 FINDINGS: Surgical changes and devices: None. Lungs and pleura: No pleural effusions or pneumothorax. Lungs are clear. Mediastinum: Mediastinal contours appear normal. Heart size is normal. Bones and chest wall: No suspicious bony lesions. Overlying soft tissues appear unremarkable. IMPRESSION: No acute process. Reviewed by: Michael Christy MD on 04/05/2023 11:43 AM [facility] Approved by: Michael Christy MD on 04/05/2023 11:43 AM [facility] Station ID: [id number]
[2023-04-05 12:23] LABS: B. PARAPERTUSSIS- RESP PCR PAN NOT DETECTED; B. PERTUSSIS- RESP PCR PANEL NOT DETECTED; C. PNEUMONIAE- RESP PCR PANEL NOT DETECTED; CORONAVIRUS 229E-RESP PCR NOT DETECTED; CORONAVIRUS HKU1-RESP PCR NOT DETECTED; CORONAVIRUS NL63-RESP PCR NOT DETECTED; CORONAVIRUS OC43-RESP PCR NOT DETECTED; HUMAN METAPNEUMOVIRUS NOT DETECTED; INFLUENZA A- RESP PCR PANEL NOT DETECTED; INFLUENZA B - RESP PCR PANEL NOT DETECTED; M. PNEUMONIAE- RESP PCR PANEL NOT DETECTED; PARAINFLUENZA VIRUS 1 NOT DETECTED; PARAINFLUENZA VIRUS 2 NOT DETECTED; PARAINFLUENZA VIRUS 3 NOT DETECTED; PARAINFLUENZA VIRUS 4 NOT DETECTED; RHINOVIRUS/ENTEROVIRUS NOT DETECTED; RSV- RESP PCR PANEL NOT DETECTED; SARS-CoV-2 -RESP PCR PANEL NOT DETECTED
[2023-04-05 14:18] LABS: BASOPHILS # (AUTO) 0.1 10^3/uL (0.0-0.1); BASOPHILS % (AUTO) 0.7 %; EOSINOPHILS # (AUTO) 0.2 10^3/uL (0.0-0.7); EOSINOPHILS % (AUTO) 2.4 %; HCT - HEMATOCRIT 41.9 % (42.0-52.0); HGB - HEMOGLOBIN 12.9 g/dL (14.0-18.0); LYMPHOCYTES # (AUTO) 1.6 10^3/uL (1.5-3.5); LYMPHOCYTES % (AUTO) 19.6 %; MEAN CORPUSCULAR HEMOGLOBIN 29.4 pg (27.0-31.0); MEAN CORPUSCULAR HGB CONC 30.8 g/dL (32.0-36.0); MEAN CORPUSCULAR VOLUME 95.4 fL (80.0-94.0); MEAN PLATELET VOLUME 8.7 fL (7.4-11.4); MONOCYTES # (AUTO) 0.7 10^3/uL (0.0-1.0); MONOCYTES % (AUTO) 8.6 %; NEUTROPHILS # (AUTO) 5.5 10^3/uL (1.5-6.6); NEUTROPHILS % (AUTO) 68.2 %; PLT - PLATELET COUNT 353 10^3/uL (130-450); RED BLOOD COUNT 4.39 10^6/uL (4.70-6.10); RED CELL DISTRIBUTION WIDTH 14.6 % (12.0-15.0)
--- NOTE | 2023-04-05 14:30 | ED Physician Documentation ---
History of Present Illness - Stated complaint Stated Complaint: LEG PX,NUMB,SWELLING - Chief complaint Chief Complaint: General - History obtained from History obtained from: Patient - History of Present Illness Timing: How many weeks ago (Several weeks) Pain level max: 3 Pain level now: 3 - Additonal information Additional information: Patient is a 62-year-old male, homeless who presents to the emergency department with swelling to the bilateral feet for several weeks. He states he has had a cough for several weeks as well. No difficulty breathing. No fevers. No chills. Drinks several beers a day. Smokes several cigarettes per day. Smokes marijuana as well. Denies any other drug use. States that his legs and feet are painful. Better when he elevates the legs and feet, worse with walking. Review of Systems Constitutional: denies: Fever, Chills Nose: reports: Rhinorrhea / runny nose, Congestion Cardiac: denies: Chest pain / pressure Respiratory: reports: Cough (Cough is mostly dry.). denies: Dyspnea, Wheezing GI: denies: Abdominal Pain, Vomiting, Diarrhea, Hematemesis : denies: Dysuria Skin: denies: Rash Musculoskeletal: denies: Neck pain, Back pain Neurologic: denies: Headache PD PAST MEDICAL HISTORY - Past Medical History Past Medical History: Yes Cardiovascular: Hypertension Respiratory: Asthma Neuro: TIA Endocrine/Autoimmune: None GI: None : None HEENT: Chronic sinusitis Psych: Depression, Anxiety, Bipolar disorder Musculoskeletal: Chronic back pain, Other Derm: None - Past Surgical History Past Surgical History: Yes General: Other Ortho: Hip replacement, Arthroscopic surgery, Other HEENT: Tonsil/Adenoidectomy - Present Medications Home Medications: Ambulatory Orders Medication Instructions Recorded Confirmed Aspirin [Ca] 325 mg PO BIDWM #24 tablet 12/28/18 HYDROcod/ACETAM 5/325 [[place] 5/325] 1 tab PO Q4HR PRN #30 tablet 12/28/18 Thiamine [Vitamin B-1] 100 mg PO DAILY #15 tablet 12/28/18 Acetaminophen [Tylenol] 650 mg PO Q6H PRN #30 tablet 11/02/22 Lidocaine Patch 5% [Lidoderm Patch] 1 patch TOP DAILY PRN #10 patch 11/02/22 Gabapentin [Neurontin] 300 mg PO TID #90 cap 04/05/23 - Allergies Allergies/Adverse Reactions: Allergies Allergy/AdvReac Type Severity Reaction Status Date / Time doxycycline Allergy Intermediate Rash Verified 04/05/23 11:16 - Social History Does the pt smoke?: Yes Smoking Status: Current every day smoker Does the pt drink ETOH?: Yes ETOH Use: Beer Does the pt have substance abuse?: Yes Substance Use and Type: Marijuana, Meth - Immunizations Immunizations are current?: No Immunizations: TDAP current <10years - POLST Patient has POLST: No POLST Status: Full Code PD ED PE NORMAL - Vitals Vital signs reviewed: Yes - General General: Alert and oriented X 3, No acute distress - HEENT HEENT: PERRL, Moist mucous membranes - Neck Neck: Supple, no meningeal sign - Cardiac Cardiac: RRR, Strong equal pulses - Respiratory Respiratory: No respiratory distress, Clear bilaterally - Abdomen Abdomen: Soft, Non tender, Non distended - Derm Derm: Warm and dry - Extremities Extremities: No calf tenderness / cord, Other (Trace edema bilaterally. No calf tenderness or cord. No erythema. No cracking of the skin. Neurovascular intact, brisk cap refill over the toes. Complains of pain to the feet when palpated, he states his feet are often numb.) - Neuro Neuro: Alert and oriented X 3 - Psych Psych: Normal mood, Normal affect Results - Vitals Vitals: Vital Signs - 24 hr 04/05/23 04/05/23 11:18 15:58 Temperature 36.5 C Heart Rate 89 88 Respiratory 18 16 Rate Blood Pressure 106/80 151/69 H O2 Saturation 98 97 Oxygen O2 Source Room air - Labs Labs: Laboratory Tests 04/05/23 04/05/23 04/05/23 11:30 14:14 14:14 WBC 8.0 RBC 4.39 L Hgb 12.9 L Hct 41.9 L MCV 95.4 H MCH 29.4 MCHC 30.8 L RDW 14.6 Plt Count 353 MPV 8.7 Neut # (Auto) 5.5 Lymph # (Auto) 1.6 [place] # (Auto) 0.7 Eos # (Auto) 0.2 Baso # (Auto) 0.1 Absolute Nucleated RBC 0.00 Nucleated RBC % 0.0 Sodium 141 Potassium 4.0 Chloride 106 Carbon Dioxide 30 Anion Gap 5.0 L BUN 8 Creatinine 0.5 L Estimated GFR (MDRD) 169 Glucose 99 Calcium 9.0 Phosphorus 3.2 Magnesium 1.7 Total Bilirubin 0.2 AST 12 ALT 12 Alkaline Phosphatase 79 Total Protein 6.6 Albumin 3.6 Globulin 3.0 Albumin/Globulin Ratio 1.2 Vitamin B12 210 Folate 10.8 Nasal Adenovirus (PCR) NOT DETECTED Nasal B. parapertussis DNA (PCR) NOT DETECTED Nasal Coronavir 229E PCR NOT DETECTED Nasal Coronavir HKU1 PCR NOT DETECTED Nasal Coronavir NL63 PCR NOT DETECTED Nasal Coronavir OC43 PCR NOT DETECTED Nasal Enterovir/Rhinovir PCR NOT DETECTED Nasal Influenza B PCR NOT DETECTED Nasal Influenza A PCR NOT DETECTED Nasal Parainfluen 1 PCR NOT DETECTED Nasal Parainfluen 2 PCR NOT DETECTED Nasal Parainfluen 3 PCR NOT DETECTED Nasal Parainfluen 4 PCR NOT DETECTED Nasal RSV (PCR) NOT DETECTED Nasal B.pertussis DNA PCR NOT DETECTED Nasal C.pneumoniae (PCR) NOT DETECTED Anil Human Metapneumo PCR NOT DETECTED Nasal M.pneumoniae (PCR) NOT DETECTED Nasal SARS-CoV-2 (PCR) NOT DETECTED - Rads (name of study) cxr Relevant Findings:: Final report received, See rad report PD Medical Decision Making - ED course Complexity details: reviewed results, re-evaluated patient, considered differential, d/w patient ED course: 62-year-old male with what appears to be a peripheral neuropathy in his feet, possibly secondary to alcoholism? No evidence of infection. No evidence of cellulitis, no evidence of bilateral DVT. His chest x-ray does not show any acute abnormalities. Respiratory PCR is negative. No hypoxia. No respiratory distress. No evidence of pneumonia, sepsis. No evidence of necrotizing fasciitis. We will trial him on gabapentin and have him follow-up closely with his primary care provider. Patient counseled regarding signs and symptoms for which I believe and urgent re-evaluation would be necessary. Patient with good understanding of and agreement to plan and is comfortable going home at this time This document was made in part using voice recognition software. While efforts are made to proofread this document, sound alike and grammatical errors may occur. Departure - Departure Disposition: 01 Home, Self Care Clinical Impression: Neuropathy Condition: Good Instructions: ED Neuropathy Peripheral, ED URI Viral Follow-Up: [facility] [place] [Provider Group] [facility] [place] [Provider Group] Prescriptions: Gabapentin [Neurontin] 300 mg PO TID #90 cap Comments: We will trial you on gabapentin for your neuropathy. Your laboratory testing does not show any acute abnormalities. Your chest x-ray does not show any pneumonia. Your COVID testing, flu testing and remainder of your testing for respiratory illnesses is negative as well. Your prescriptions were sent to [facility] in [place]. Please follow-up with one of the walk-in clinics or your primary care provider for further care. Forms: PCP List Discharge Date/Time: 04/05/23 16:06
[2023-04-05 14:49] LABS: ALBUMIN 3.6 g/dL (3.2-5.5); ALBUMIN/GLOBULIN RATIO 1.2 (1.0-2.2); BILIRUBIN,TOTAL 0.2 mg/dL (0.2-1.0); CREATININE 0.5 mg/dL (0.6-1.3); MAGNESIUM 1.7 mg/dL (1.7-2.3); PHOSPHORUS 3.2 mg/dL (2.5-5.0); TOTAL PROTEIN 6.6 g/dL (6.4-8.9)
[2023-04-05 16:04] VITALS: BP 151/69; O2SAT 97
== END 2023-04-05 16:06 | disposition home or self-care (01) ==
LOC: ED 11:07
DX: G62.9 Polyneuropathy, unspecified (principal); R60.0 Localized edema; I10 Essential (primary) hypertension; F17.210 Nicotine dependence, cigarettes, uncomplicated; Z86.73 Personal history of transient ischemic attack (TIA), and cerebral infarction without residual deficits; Z79.82 Long term (current) use of aspirin; Z79.899 Other long term (current) drug therapy
CPT/HCPCS: 36415; 80053; 82607; 82746; 83735; 84100; 85025; 87633; 99283; 99284

== ENCOUNTER 2023-07-05 10:06 | Outpatient (CLI) | payer MEDICARE, MEDICAID ==
[2023-07-05 15:32] LABS: BASOPHILS # (AUTO) 0.1 10^3/uL (0.0-0.1); BASOPHILS % (AUTO) 0.5 %; EOSINOPHILS # (AUTO) 0.2 10^3/uL (0.0-0.7); EOSINOPHILS % (AUTO) 1.8 %; HCT - HEMATOCRIT 48.7 % (42.0-52.0); HGB - HEMOGLOBIN 15.3 g/dL (14.0-18.0); LYMPHOCYTES # (AUTO) 2.1 10^3/uL (1.5-3.5); LYMPHOCYTES % (AUTO) 20.9 %; MEAN CORPUSCULAR HEMOGLOBIN 29.5 pg (27.0-31.0); MEAN CORPUSCULAR HGB CONC 31.4 g/dL (32.0-36.0); MEAN PLATELET VOLUME 10.5 fL (7.4-11.4); MONOCYTES # (AUTO) 0.8 10^3/uL (0.0-1.0); MONOCYTES % (AUTO) 8.3 %; NEUTROPHILS # (AUTO) 6.9 10^3/uL (1.5-6.6); NEUTROPHILS % (AUTO) 68.2 %; PLT - PLATELET COUNT 311 10^3/uL (130-450); RED BLOOD COUNT 5.18 10^6/uL (4.70-6.10); RED CELL DISTRIBUTION WIDTH 13.5 % (12.0-15.0); WHITE BLOOD COUNT 10.1 x10^3/uL (4.8-10.8)
[2023-07-05 15:52] LABS: ALBUMIN 4.5 g/dL (3.2-5.5); ALBUMIN/GLOBULIN RATIO 1.4 (1.0-2.2); ALKALINE PHOSPHATASE 84 IU/L (42-121); ALT ALANINE AMINOTRANSFERASE 7 IU/L (10-60); AST ASPARTATE AMINOTRANSFERASE 12 IU/L (10-42); BILIRUBIN,TOTAL 0.4 mg/dL (0.2-1.0); BUN - BLOOD UREA NITROGEN 9 mg/dL (6-20); CALCIUM 9.9 mg/dL (8.5-10.3); CARBON DIOXIDE - CO2 32 mmol/L (21-32); CHLORIDE 104 mmol/L (101-111); CHOL/HDL RATIO 4.8 (<5.0); CHOLESTEROL 212 mg/dL; CREATININE 0.6 mg/dL (0.6-1.3); GFR - MDRD 137 (>89); GLUCOSE 84 mg/dL (74-104); HDL CHOLESTEROL 44 mg/dL; LDL CHOLESTEROL,CALCULATED 134 mg/dL; SODIUM 141 mmol/L (135-145); TOTAL PROTEIN 7.8 g/dL (6.4-8.9); TRIGLYCERIDES 168 mg/dL (48-352); VLDL CHOLESTEROL 34 mg/dL
[2023-07-05 20:41] LABS: ESTIMATED AVERAGE GLUCOSE 105 mg/dL (70-100); HEMOGLOBIN A1c% 5.3 % (4.27-6.07)
== END 2023-07-05 10:07 | disposition home or self-care (01) ==
LOC: LAB.S 10:06
PROVIDERS: ATTEND Physician Assistant Medical
DX: Z13.9 Encounter for screening, unspecified (principal)
CPT/HCPCS: 36415; 80053; 80061; 83036; 83721; 84153; 85025